=== PATIENT | male | born 1945 | race Caucasian/White ===

== ENCOUNTER → 2017-04-20 | Outpatient (CLI) | payer BC ==
[~2017-04-20] MED LIST: ACET-1256 PO; ASPI325T4 PO; CARB25TA12 PO; CLB/200 PO; CMD6 PO; ERYOPO1 TOP; LPR25 PO; MULTCHW PO; PSYL55.43 PO; RANITAB6 PO; VALA1TAB PO; WARF-246 PO; [UNRECOGNIZED DRUG - CODE] TOP
--- NOTE | 2017-04-21 05:17 | PAP/PSG TECHNICIAN REPORT ---
[facility] Carbon Lamp Cleaner Polysomnogram Report Study name: None Report date: 04/21/2017 Study date: 04/20/2017 Referring Physician: Belle Segura M.D. Name: MILIND FLORENTINO Interpreting Physician: Saurabh Quiñones D.O. Date of : 1945 Carbon Lamp Cleaner: Qian Odell [facility]. Sex: Male Age: 72 StudyType: PSG Weight: 210 lbs Height: 72 years, Height 6' 2" Neck Circum:16inches BMI: 26.96 Medications: Warfarin 5mg, Warfarin, 1 mg, Celebrex 200mg, Sinemet 25-100tab, Olux topical foam, Ergel topical gel, Ketoconazole 2% shampoo Patient History Study started on room air with no ETCO2 monitoring in room #6. 72 yr old male just recently diagnosed with Parkinson Disease. He has low back pain. He sleeps supine with his head and legs elevated. He snores. He has a history of atrial fibrillation, bleeding disorder, blood clots, cancer and osteoarthritis. His ESS=8/24. Neck circ=16 inches. Parameters Monitored NPSG: E1-M2, E2-M1, Fp1-M2, Fp2-M1, F3-M2, F4-M2, F4-M1, C3-M2, C4-M2, C4-M1, O1-M2, O2-M2, O2-M1, T3-M2, T4-M1, P3-M2, P4-M1, CHIN1, CHIN2, HR, EKG, Legs, PFLOW, SNOR, FLOW, CFLOW, Tidal Volume, THOR, ABDO, SpO2, PLTH, CPRESS, ETCO2 Wave, ETCO2, pH Sleep Architecture Sleep Stages Time at Lights Off 10:12:38 PM STAGES Time (min.) TST (%) Time at Lights On 4:58:38 AM Wake 61.0 -- Total Recording Time (TRT) 406.00 min. N1 8.0 2 Total Sleep Period (TSP) 386.0 min. N2 133.5 39 Total Sleep Time (TST) 345.0min. N3 138.5 40 Awake Time 61.0 min. REM 65.0 19 Wake after Sleep Onset 54.5 min. Sleep Efficiency (SE) 85 % Sleep Onset Latency (ROBEL) 6.5 min. Number of Stage 1 Shifts None Awakenings 10 Stage Changes 54 Number of REM periods 11 REM 65.0 19 REM Latency 66.5 min. NREM 280.0 81 Body Position Analysis Supine Right Left Side Prone Vertical Total Sleep Time (min.) 406.0 0.0 0.0 0.00 0.0 0.0 Total Sleep Time (%) 100% 0% 0% 0 0% N/A% Total Sleep Time REM (min.) 65.0 0.0 0.0 None 0.0 0.0 Total Sleep Time NREM (min.) 280.0 0.0 0.0 None 0.0 0.0 Intermittent Wake (min.) 61.0 0.0 0.0 None 0.0 0.0 Total Sleep Period (%) 100% None None None None None Arousals Myoclonus (PLM) * Events Count Index Events Count Index Spontaneous 13 2 Events Awake (PLMW) 41 40.3 Respiratory 3 0.5 Events Asleep w/ Arousal (PLMA) 3 0.5 PLM 3 1 Events Asleep w/o Arousal (PLMS) 757 131.7 Snoring 3 1 Total Asleep 760 132.2 Total 22 4 Total 801 118 Respiratory Analysis * CA OA MA CH H RERA Total Count 0 4 0 0 42 0 46 Index 0.0 0.7 0.0 0 7.3 0 8.0 Mean Duration 0.0 28.3 0.0 0.00 35.6 0.0 34.9 Longest Duration 0.0 42.2 0.0 0.00 0.0 0.0 60.7 Respiratory Event Summary Total Supine ~Supine Right Left Prone REM NREM Apneas Count 4 4 N/A N/A N/A N/A 0 4 Index 0.7 1 N/A N/A N/A N/A 0 1 Hypopneas (4% Desat) Count 42 42 N/A N/A N/A N/A 6 36 Index 7.3 7.3 N/A N/A N/A N/A 5.5 7.7 Apneas & All Hypopneas Count 46 46 N/A N/A N/A N/A 6 40 Index 8.0 8 N/A N/A N/A N/A 5.5 8.6 Respiratory Events (Electric Distribution Engineer+All Hyp+RERA) Count 46 46 N/A N/A N/A N/A 6 40 Index 8.0 8 N/A N/A N/A N/A 5.5 8.6 Respiratory Related Arousal Count 3 46 N/A N/A N/A N/A 2 1 Index 0.5 1 N/A N/A N/A N/A 2 0 Snoring Analysis Supine Right Left Prone REM NREM Total Snore duration 6.2 min Snores count 284 N/A N/A N/A 48 236 284 Snore mean duration 1.3 Sec Snores index 49 N/A N/A N/A 44.3 50.6 49.4 TST with snoring (%) 1.8% Desaturation Event Summary: Minimum %SpO2 Event Count Mean/Min/Max Duration(sec.) Desaturation Index % Time In Bed > 90 57 43.0 / 10.3 / 60.0 9.6 91.4 86 - 90 1 9.8 / 9.8 / 9.8 1.8 8.4 81 - 85 0 N/A 0.0 0.1 76 - 80 0 N/A 0.0 0.0 71 - 75 0 N/A 0.0 0.0 66 - 70 0 N/A 0.0 0.0 61 - 65 0 N/A 0.0 0.0 56 - 60 0 N/A 0.0 0.0 51 - 55 0 N/A 0.0 0.0 < 50 0 N/A 0.0 0.0 Total REM NREM Awake <50% 0.0 min. 0.0 min. 0.0 min. 0.0 min. 51 - 60% 0.0 min. 0.0 min. 0.0 min. 0.0 min. 61 - 70% 0.0 min. 0.0 min. 0.0 min. 0.0 min. 71 - 80% 0.0 min. 0.0 min. 0.0 min. 0.0 min. 81 - 90% 33.3 min. 0.8 min. 29.8 min. 2.8 min. 91 - 100% 356.1 min. 64.0 min. 250.0 min. 42.2 min. Average 93 93 93 94 Minimum SpO2 81 88 84 81 Desaturation Event Index 8.6 10.2 9.9 1.0 # Desat. Events below 89% 13 2 11 0 Time(%) with Saturation below 89% 1.4 0.0 1.3 0.1 Time(min.) with Saturation below 89% 5.6 0.0 5.1 0.5 Time (mins) REM (mins) NREM (mins) % of TST SpO2 Below 90% 32 2 N30 3.6 SpO2 Below 88% 8 0 0 0 Heart Rate Analysis Min (bpm) Max (bpm) Average (bpm) Awake 55 76 63 NREM 52 69 60 REM 52 64 57 Overall 52 69 59 Supplemental O2 Values Minimum O2 level: None Value Start Time End Time Carbon Lamp Cleaner Comments Mr. Florentino slept in the position with the head and foot of the bed slightly elevated. No cardiac arrhythmia noted. PLM's noted. No bruxism noted. Snoring was noted and scored as a 2 on a scale of 1 through 5. (0=no snoring, 5=snoring loud enough to be heard through a closed door or down the [address] way) He awoke to use the restroom 4 times during the night. He stated that he slept about the same as usual. The final report will be interpreted and signed by a sleep physician. The completed physician report will then be placed in the patient medical record. Therapy (cm H2O) 0 TIB (min.) 406.0 TST (min.) 345.0 Sleep Onset (min.) 6.5 REM Onset From Sleep (min.) 66.5 Sleep Efficiency % 85 Wakefulness (%) 15 Wakefulness (min.) 61.0 NREM 1 (%) 2 NREM 1 (min.) 8.0 NREM 2 (%) 39 NREM 2 (min.) 133.5 NREM 3 (%) 40 NREM 3 (min.) 138.5 REM (%) 19 REM (min.) 65.0 # Arousals 22 Arousal Index 4 # Snore 284 Snore Index 49.4 AHI 8.0 AHI Supine 8 AHI Non-Supine N/A NREM AHI 8.6 REM AHI 5.5 RDI 8.0 # Obstructive Apnea 4 # Central Apnea 0 # Mixed Apnea 0 # Hypopneas 42 RERAs 0 Total Respiratory Events 46 Time Below SpO2 89% (min.) 5.1 Mean NREM SpO2 (%) 93 Mean REM SpO2 (%) 93 Mean Sleep SpO2 (%) 93 Min NREM SpO2 (%) 84 Min REM SpO2 (%) 88 Position Supine (min.) 406.0 Position Non-supine (min.) 0.0 LM Index Sleep 132.2 LM Index NREM 139.9 LM Index REM 98.8 Mean Heart Rate (bpm) 59 Min Heart Rate (bpm) 52
--- NOTE | 2017-04-21 17:51 | Sleep Study ---
Sleep Study Report Date of Service: 04/20/2017 Sleep Study Report Clinical data: The patient is a 72-year-old male with a BMI of 26.96. He is referred by Dr.Justin Segura. The patient has a history of snoring, atrial fibrillation , and he completed the [place] Sleepiness Scale and had a score of 8 out of a possible 24. He has a recent diagnosis of Parkinson's disease. Sleep architecture: A total sleep. Was 386 minutes. The total sleep time was 345 minutes. The sleep efficiency was mildly reduced to 85 percent. Sleep latency was normal at 6.5 minutes. Wake after sleep onset was 54.5 minutes. REM latency was normal at 66.5 minutes. Sleep consisted of stage N1 2 percent, stage N2 39 percent, stage N3 40 percent , and stage REM 19 percent. Arousal data: The patient had a total of 22 arousals including 13 spontaneous arousals, 3 respiratory arousals, 3 PLM arousals, and 3 snoring arousals. The arousal index was 4. PLM data: Patient had a total of 760 periodically limb movements of sleep for an index of 132.2. There were 3 arousals for a PLM arousal index of 0.5. Respiratory data: Patient had a total of 46 respiratory events including 4 obstructive apneas and 42 hypopneas. Hypopneas were scored by the 4 percent desaturation rule. The longest apnea was 42.2 seconds. The mean duration of hypopneas was 35.6 seconds. The apnea-hypopnea index is mildly elevated at 8.0. This is compatible with mild obstructive sleep apnea. Oximetry data: The average saturation for the night was 93 percent. The minimum saturation was 81 percent. There was a total of 5.6 minutes with saturations less than 89 percent. EKG: The underlying rhythm was normal sinus. No atrial fibrillation was seen. The cardiac rate ranged from 52 to 69 beats per minute. The average heart rate was 59 beats per minute. Equal Opportunity Counselor comments: The patient slept with the head in foot of the bed slightly elevated. No cardiac arrhythmia noted. PLMS noted. No bruxism noted. Snoring was noted and scored as a 2 on a scale of 1 through 5. The patient awaken to use the restroom 4 times during the night. Stated that he slept about the same as usual. Impressions: 1. Obstructive sleep apnea-mild 2. Periodic limb movement disorder Comments: The patient has mild sleep apnea. His sleep efficiency was just mildly abnormal. His oxygenation had some very transient desaturations but nothing the persisted. Consideration could be given to treatment with nasal CPAP based upon his history of comorbidities including atrial fibrillation. He has very frequent periodic limb movements but with few arousals. It would seem appropriate to treat sleep apnea 1st. The leg movement abnormality could then be evaluated after he is well adapted to CPAP. Recommendations: 1. It is advised that the patient be given a trial of nasal CPAP. This could be arranged by referral for an in-lab CPAP titration study. Alternatively he could be treated with auto CPAP. A sleep medicine consultation could be considered. 2. The patient should be advised if possible to avoid sleeping in the supine position. Typically there more respiratory events when patients are supine. It is notable he did spend the entire night in the supine position during the sleep study. 3. It is suggested that the patient have a serum ferritin checked if it has not been done recently. This would be because of the association between restless legs and iron deficiency. Typically iron replacement is advised if the ferritin level is less than 50. Copies To 1: Saurabh Quiñones DO; Belle Segura M.D.
== END | disposition home or self-care (01) ==
LOC: C.NEUR 21:00
PROVIDERS: ATTEND Orthopaedic Surgery
DX: G47.30 Sleep apnea, unspecified (principal)

== ENCOUNTER → 2017-06-06 | Outpatient (CLI) | payer BC ==
[~2017-06-06] VITALS: Ht 188 cm; Wt 98.1 kg
[2017-06-06 15:43] VITALS: BP 158/76; PULSE 79; Ht 188 cm; Wt 98.1 kg
== END | disposition home or self-care (01) ==
LOC: C.NEUR 14:10
PROVIDERS: ATTEND Internal Medicine Pulmonary Disease
DX: G47.30 Sleep apnea, unspecified (principal); G20 Parkinson's disease

== ENCOUNTER → 2017-06-16 | Day surgery (SDC) | payer BC ==
[2017-06-09 08:23] VITALS: Ht 188 cm; Wt 95.5 kg
[~2017-06-16] VITALS: Ht 188 cm; Wt 95.5 kg
[~2017-06-16] MED LIST changes: -ASPI325T4 PO; +LIDOCAINE HCL 2% 2 ML VIAL (20MG/ML) ONE; -LPR25 PO; +PROPOFOL IV EMULSION 10 MG/ML 20 ML VIAL IV ONE; -PSYL55.43 PO; +SODIUM CHLORIDE 0.9% 500ML 500 ML IV ONE
--- NOTE | 2017-06-16 08:32 | Endo History and Physical ---
History & Physical Date of Service: Jun 16, 2017. Chief Complaint: history of polyps Referring Physician: Dr. Filipe Chicas History of Present Illness 72 yo CM who presents for colonoscopy secondary to history of colon polyps. Past Surgical History Hx Cardiac Surgery: Yes (CARDIOVERSION, CARDIAC ABLATION) Hx Internal Defibrillator: No Hx Pacemaker: No Hx Abdominal Surgery: No Hx of Implantable Prosthesis: No Hx Post-Op Nausea and Vomiting: No Hx Cancer Surgery: Yes (POLYPECTOMY) Hx Thoracic Surgery: No Hx Orthopedic: Yes (LT/RT KNEE SURGERY X4, LT/RT TKA, LT/RT SHOULDER, L5-4 SPINAL SURGERY X3) Hx Urinary Tract Surgery: No Family History Colon CA, Polyp, IBD Social History Smoking Status: Never Smoker Hx Substance Use: No Hx Alcohol Use: No Allergies Coded Allergies: Dronedarone (Verified Adverse Reaction, Mild, FLU LIKE SYMPTOMS, 06/09/17) Adhesives (Verified Adverse Reaction, Unknown, RASH WITH BAND-AIDS, ) Current Medications Reported Home Medications Medications Dose Route/Sig Max Daily Dose Days Date Category Dose Instructions Erythromycin 1 Appln/1 Gm Oint 1 Dose TOP DAILY 06/09/17 Reported Olux-E (Clobetasol Propionate Emulsion) 0.05 % Aer 1 Dose TOP DAILY 06/09/17 Reported Sinemet 25MG/100MG (Carbidopa/Levodopa) Tab 1 Tab PO TID 06/09/17 Reported CeleBREX (Celecoxib) 200 Mg Cap 200 Mg PO QAM 06/09/17 Reported Coumadin (Warfarin Sod) 6 Mg Tab 1 Tab PO 4XWK 06/09/17 Reported SUN,TUES,THURS,SAT Zantac 150 Maximum Streng (Ranitidine Hcl) 150 Mg Tab 150 Mg PO DAILY PRN 10/07/13 Reported Warfarin Sodium 5 Mg Tab 5 Mg PO 3XWK 10/07/13 Reported MON, WED, FRI Tylenol (Acetaminophen) 500 Mg Tab 1,000 Mg PO UD PRN 10/07/13 Reported Centrum Silver (Multiple Vitamins W/ Minerals) 1 Chw Chw 1 Tab PO DAILY 10/07/13 Reported Valtrex (Valacyclovir HCl) 1,000 Mg Tab 1,000 Mg PO UD PRN 07/17/09 Reported Vital Signs Weight (Kilograms): 95.45 Height (Feet): 6 Height (Inches): 2 Date Time Temp Pulse Resp B/P (MAP) Pulse Ox O2 Delivery O2 Flow Rate FiO2 06/16/17 08:29 36.7 69 20 179/98 (125) 97 Room Air Physical Exam General Appearance: WD/WN, no apparent distress Respiratory/Chest: Auscultation: breath sounds normal Cardiovascular: Heart Auscultation: RRR Abdomen: Bowel Sounds: normal Inspection & Palpation: soft, non-distended, no tenderness, guarding & rebound Assessment and Plan Assessment: 72 yo CM who presents for colonoscopy secondary to history of colon polyps. Plan: Proceed with colonoscopy.
--- NOTE | 2017-06-16 09:33 | Anesthesiology Progress Note ---
Anesthesia Post Op Note Date & Time Jun 16, 2017 at 09:33 Vital Signs Pain Intensity: 0 Vital Signs Past 12 Hours Date Time Temp Pulse Resp B/P (MAP) Pulse Ox O2 Delivery O2 Flow Rate FiO2 06/16/17 09:23 58 18 128/74 (92) 97 Room Air 06/16/17 09:08 67 18 124/67 (86) 97 Room Air 06/16/17 08:29 36.7 69 20 179/98 (125) 97 Room Air Notes Mental Status: alert / awake / arousable, participated in evaluation Pt Amnestic to Procedure: Yes Nausea / Vomiting: adequately controlled Pain: adequately controlled Airway Patency, RR, SpO2: stable & adequate BP & HR: stable & adequate Hydration State: stable & adequate Anesthetic Complications: no major complications apparent
--- NOTE | 2017-06-16 09:33 | Discharge Instructions ---
Endoscopy Patient Instructions Date / Procedure(s) Performed Jun 16, 2017. Colonoscopy Allergy Information Coded Allergies: Dronedarone (Verified Adverse Reaction, Mild, FLU LIKE SYMPTOMS, 06/09/17) Adhesives (Verified Adverse Reaction, Unknown, RASH WITH BAND-AIDS, ) Discharge Date / Findings Jun 16, 2017. Colon polyps Diverticulosis Internal hemorrhoids Medication Instructions Stopped Medication(s): stopped MVI week ago,took Warfarin yesterday OK to resume all medications today as prescribed Reported Home Medications Medications Dose Route/Sig Max Daily Dose Days Date Category Dose Instructions Erythromycin 1 Appln/1 Gm Oint 1 Dose TOP DAILY 06/09/17 Reported Olux-E (Clobetasol Propionate Emulsion) 0.05 % Aer 1 Dose TOP DAILY 06/09/17 Reported Sinemet 25MG/100MG (Carbidopa/Levodopa) Tab 1 Tab PO TID 06/09/17 Reported CeleBREX (Celecoxib) 200 Mg Cap 200 Mg PO QAM 06/09/17 Reported Coumadin (Warfarin Sod) 6 Mg Tab 1 Tab PO 4XWK 06/09/17 Reported SUN,TUES,THURS,SAT Zantac 150 Maximum Streng (Ranitidine Hcl) 150 Mg Tab 150 Mg PO DAILY PRN 10/07/13 Reported Warfarin Sodium 5 Mg Tab 5 Mg PO 3XWK 10/07/13 Reported MON, WED, FRI Tylenol (Acetaminophen) 500 Mg Tab 1,000 Mg PO UD PRN 10/07/13 Reported Centrum Silver (Multiple Vitamins W/ Minerals) 1 Chw Chw 1 Tab PO DAILY 10/07/13 Reported Valtrex (Valacyclovir HCl) 1,000 Mg Tab 1,000 Mg PO UD PRN 07/17/09 Reported Provider Instructions Activity Restrictions - No exercising or heavy lifting for 24 hours. - Do not drink alcohol the day of the procedure. - Do not drive a car or operate machinery until the day after the procedure. - Do not make any important decisions or sign important papers in 24 hours after the procedure. Following Day: - Return to full activity which may include returning to work/school. Diet Start your diet with liquids and light foods (jello, soup, juice, toast). Then eat your usual diet if not nauseated. Treatment For Common After Affects For mild abdominal pain, bloating, or excessive gas: - Rest - Eat lightly - Lie on right side Follow-Up Information Follow-up with Dr. Filipe Chicas as scheduled Anesthesia Information What You Should Know You have had a procedure that required some medicine to reduce anxiety and discomfort. This treatment is called moderate sedation. After receiving the treatment, you may be sleepy, but you will be able to breathe on your own. The effects of the treatment may last for several hours. Follow these instructions along with Activity/Diet recommendations noted above: * Do NOT do anything where dizziness or clumsiness would be dangerous. * Rest quietly at home today, then you can be up and about tomorrow. * Have a responsible person stay with you the rest of today. * You may have had an I.V. today. If so, you may take the dressing off later today. Recommendations Call your doctor if: * Trouble breathing * Continuous vomiting for more than 24 hours * Temperature above 101 degrees * Severe abdominal pain or bloating * Pain not relieved by pain medicine ordered * There is increased drainage or redness from any incision * A large amount of rectal bleeding greater than 2-3 tablespoons. (If you had a polyp/s removed or have hemorrhoids, a small amount of blood - from the rectum is to be expected.) * You have any unanswered questions or concerns. IN THE EVENT OF A SERIOUS EMERGENCY, GO TO THE NEAREST EMERGENCY ROOM Your discharge instructions were prepared by provider Farhat Diop. Patient Instructions Signature Page Kimo Florentino Patient (or Guardian) Signature/Date: I have read and understand the instructions given to me by my caregivers. Caregiver/RN/Doctor Signature/Date: The above-named patient and/or guardian has received patient instructions on this date. + Original Patient Signature Page (only) stays with chart. Please make copy for patient.
[2017-06-16 09:38] VITALS: BP 161/91; PULSE 62; O2SAT 97
--- NOTE | 2017-06-16 09:43 | GI REPORT ---
Procedure Date: 06/16/2017 8:43 AM Procedure: Colonoscopy Indications: High risk colon cancer surveillance: Personal history of colonic polyps Medicines: Monitored Anesthesia Care Complications: No immediate complications. Estimated Blood Loss: Estimated blood loss: none. Procedure: Pre-Anesthesia Assessment: - Prior to the procedure, a History and Physical was performed, and patient medications and allergies were reviewed. The patient's tolerance of previous anesthesia was also reviewed. The risks and benefits of the procedure and the sedation options and risks were discussed with the patient. All questions were answered, and informed consent was obtained. Prior Anticoagulants: The patient has taken Coumadin (warfarin), last dose was 1 day prior to procedure. ASA Grade Assessment: III - A patient with severe systemic disease. After reviewing the risks and benefits, the patient was deemed in satisfactory condition to undergo the procedure. After I obtained informed consent, the scope was passed under direct vision. Throughout the procedure, the patient's blood pressure, pulse, and oxygen saturations were monitored continuously. The scope was introduced through the anus and advanced to the terminal ileum. The colonoscopy was performed without difficulty. The patient tolerated the procedure well. The quality of the bowel preparation was fair. The terminal ileum, ileocecal valve, appendiceal orifice, and rectum were photographed. Findings: Two sessile polyps were found in the cecum. The polyps were 3 to 5 mm in size. These polyps were removed with a hot snare. Resection and retrieval were complete. Multiple small-mouthed diverticula were found in the sigmoid colon. Non-bleeding internal hemorrhoids were found during retroflexion. The hemorrhoids were small. Impression: - Two 3 to 5 mm polyps in the cecum, removed with a hot snare. Resected and retrieved. - Diverticulosis in the sigmoid colon. - Non-bleeding internal hemorrhoids. Recommendation: - Resume previous diet. - Continue present medications. - Repeat colonoscopy for surveillance based on pathology results. - Return to primary care physician as previously scheduled. Farhat Diop, DO 06/16/2017 9:42:21 AM This report has been signed electronically. Note Initiated On: 06/16/2017 8:43 AM I attest to the content of the Intraoperative Record and orders documented therein, exceptions below
== END | disposition home or self-care (01) ==
LOC: C.GI 08:10
PROVIDERS: ATTEND Internal Medicine
DX: Z12.11 Encounter for screening for malignant neoplasm of colon (principal); D12.0 Benign neoplasm of cecum; K57.30 Diverticulosis of large intestine without perforation or abscess without bleeding; K64.8 Other hemorrhoids; Z86.010 Personal history of colon polyps; Z80.0 Family history of malignant neoplasm of digestive organs; Z83.71 Family history of colonic polyps; Z83.79 Family history of other diseases of the digestive system; Z79.01 Long term (current) use of anticoagulants; Z79.899 Other long term (current) drug therapy

== ENCOUNTER 2017-06-26 15:02 | Inpatient (IN) | payer BC, OTHER ==
[~2017-06-26] VITALS: Ht 188 cm; Wt 93.8 kg
[~2017-06-26 15:02] MED LIST changes: -LIDOCAINE HCL 2% 2 ML VIAL (20MG/ML) ONE; -PROPOFOL IV EMULSION 10 MG/ML 20 ML VIAL IV ONE; -SODIUM CHLORIDE 0.9% 500ML 500 ML IV ONE
--- NOTE | 2017-06-26 16:17 | EMERGENCY ROOM VISIT NOTE ---
ED Visit Note First contact with patient: 15:17 HPI: c/o GIB. On coumadin for dVT. Recent colonscopy s/p polypectomy. Dark stool x 1 yesterday and red blood per rectum x 1 today. PE: AFVSS, NAD NC/AT, dry MM RRR, no murmurs CTAB Abd soft, mild lower abd ttp. Ext: no edema, erythema Neuro: grossly intact Plan: +Melena per residen's rectal exam. HCT 38, BUN 24, INR 2.2. CXR negative for free air. Protonix. Admit. I reviewed the patient's past medical history, medications, and visit nursing notes. I discussed the case with the resident, examined the patient, and agree with the findings and plan as documented in the residents note.
--- NOTE | 2017-06-26 16:21 | EMERGENCY ROOM VISIT NOTE ---
History First contact with patient: 15:18 Chief Complaint: GI ASSESSMENT Stated Complaint: BLOOD IN STOOL, GAS PAINS Nursing Triage Summary: Patient presents with c/o blood in stool He is on coumadin He had a colonoscopy on 06/16/2017, reports difficulty with bowel movements and constipation for several days. He has been using miralax. He noted black stool and some red blood in the toilet today He also reports a hemorrhoid History of Present Illness The patient is a 72 year old male who presents to the Emergency Room with complaints of dark stool which started yesterday. The patient had noticed dark stool with blood in the toilet bowl today. It is associated with abdominal pain. The patient had a colonoscopy performed on 06/16 and had a resection of 2 polyps in the cecum. He was also noted to have diverticulosis and internal hemorrhoids. After the colonoscopy he stated that he did not have a bowel movement for 3 to 4 days and he took MiraLAX and Metamucil. The patient has a family history of colon cancer and had been getting colonoscopies , his last colonoscopy was 06/16. He also complains of lower abdominal pain that started about 3 days ago, 2-3/10 in severity with no radiation. Denies any nausea or vomiting, fevers or chills. Patient takes Coumadin for DVT and Celebrex for knee pain. Denies any chest pain, shortness of breath, palpitations or dizziness. Review of Systems See HPI for pertinent positives & negatives. A total of 10 systems reviewed and were otherwise negative. Past Medical/Surgical History DVT. Parkinson's disease. TKA. Shoulder surgery. Social History Smoking Status: Never Smoker Marital Status: Occupation Status: retired Current/Historical Medications Scheduled Carbidopa/Levodopa (Sinemet 25MG/100MG), 1 TAB PO TID Celecoxib (CeleBREX), 200 MG PO QAM Clobetasol Propionate Emulsion (Olux-E), 1 DOSE TOP DAILY Erythromycin (Erythromycin), 1 DOSE TOP BID Multiple Vitamins W/ Minerals (Centrum Silver), 1 TAB PO DAILY Warfarin Sod (Coumadin), 1 TAB PO 4XWK Warfarin Sodium (Warfarin Sodium), 5 MG PO 3XWK Scheduled PRN Ranitidine Hcl (Zantac 150 Maximum Streng), 150 MG PO DAILY PRN for Indigestion Valacyclovir (Valtrex), 1,000 MG PO UD PRN for BREAKOUT Physical Exam Vital Signs Date Time Temp Pulse Resp B/P (MAP) Pulse Ox O2 Delivery O2 Flow Rate FiO2 06/26/17 19:37 69 15 97 06/26/17 19:30 145/82 06/26/17 19:22 69 18 97 06/26/17 19:21 158/94 06/26/17 19:07 72 12 06/26/17 19:01 164/94 06/26/17 19:00 67 06/26/17 18:52 69 25 06/26/17 18:37 64 17 100 06/26/17 18:32 66 15 100 06/26/17 18:02 65 20 99 06/26/17 18:00 142/80 06/26/17 17:32 66 97 06/26/17 17:02 65 17 140/76 97 06/26/17 17:02 71 16 140/76 97 Room Air 06/26/17 16:32 68 19 99 06/26/17 16:07 68 06/26/17 16:02 69 22 06/26/17 16:00 150/85 06/26/17 15:31 181/106 06/26/17 15:30 98 Room Air 06/26/17 15:10 36.4 76 20 153/88 98 Room Air Physical Exam GENERAL: Patient is in no acute distress. HEENT: normocephalic atraumatic, mucous membranes moist, no nasal congestion, no scleral icterus. NECK: No stridor, no adenopathy, no meningismus, trachea is midline. LUNGS: Clear to auscultation bilaterally, no wheeze, no rhonchi, breath sounds equal. HEART: Without murmurs gallops or rubs, regular rate and rhythm. ABDOMEN: Soft, mild left lower quadrant tenderness , bowel sounds positive, no hernias, no peritonitis. EXTREMITIES: No cyanosis or edema, no signs for acute trauma. NEUROLOGIC: Oriented x 3, left sided paralysis SKIN: No rash, no jaundice, no diaphoresis. Medical Decision & Procedures Laboratory Results 06/26/17 15:25 Red Blood Count 4.38, Mean Corpuscular Volume 86.5, Mean Corpuscular Hemoglobin 28.8, Mean Corpuscular Hemoglobin Concent 33.2, Mean Platelet Volume 9.6, Neutrophils (%) (Auto) 72.1, Lymphocytes (%) (Auto) 18.4, Monocytes (%) (Auto) 6.9, Eosinophils (%) (Auto) 2.0, Basophils (%) (Auto) 0.3, Neutrophils # (Auto) 5.30, Lymphocytes # (Auto) 1.35, Monocytes # (Auto) 0.51, Eosinophils # (Auto) 0.15, Basophils # (Auto) 0.02 06/26/17 15:25 Test 06/26/17 15:25 White Blood Count 7.35 K/uL (4.8-10.8) Red Blood Count 4.38 M/uL (4.7-6.1) Hemoglobin 12.6 g/dL (14.0-18.0) Hematocrit 37.9 % (42-52) Mean Corpuscular Volume 86.5 fL (80-100) Mean Corpuscular Hemoglobin 28.8 pg (25-34) Mean Corpuscular Hemoglobin Concent 33.2 g/dl (32-36) Platelet Count 203 K/uL (130-400) Mean Platelet Volume 9.6 fL (7.4-10.4) Neutrophils (%) (Auto) 72.1 % Lymphocytes (%) (Auto) 18.4 % Monocytes (%) (Auto) 6.9 % Eosinophils (%) (Auto) 2.0 % Basophils (%) (Auto) 0.3 % Neutrophils # (Auto) 5.30 K/uL (1.4-6.5) Lymphocytes # (Auto) 1.35 K/uL (1.2-3.4) Monocytes # (Auto) 0.51 K/uL (0.11-0.59) Eosinophils # (Auto) 0.15 K/uL (0-0.5) Basophils # (Auto) 0.02 K/uL (0-0.2) RDW Standard Deviation 45.2 fL (36.4-46.3) RDW Coefficient of Variation 14.3 % (11.5-14.5) Immature Granulocyte % (Auto) 0.3 % Immature Granulocyte # (Auto) 0.02 K/uL (0.00-0.02) Prothrombin Time 25.7 SECONDS (9.0-12.0) Prothromb Time International Ratio 2.3 (0.9-1.1) Activated Partial Thromboplast Time 38.1 SECONDS (21.0-31.0) Partial Thromboplastin Ratio 1.5 Anion Gap 5.0 mmol/L (3-11) Est Creatinine Clear Calc Drug Dose 91.6 ml/min Estimated GFR () 101.1 Estimated GFR (Non- 87.2 BUN/Creatinine Ratio 27.4 (10-20) Calcium Level 10.0 mg/dl (8.5-10.1) Total Bilirubin 0.4 mg/dl (0.2-1) Aspartate Amino Transf (AST/SGOT) 19 U/L (15-37) Alanine Aminotransferase (ALT/SGPT) 10 U/L (12-78) Alkaline Phosphatase 71 U/L (45-117) Total Protein 7.1 gm/dl (6.4-8.2) Albumin 3.8 gm/dl (3.4-5.0) Globulin 3.3 gm/dl (2.5-4.0) Albumin/Globulin Ratio 1.2 (0.9-2) Medications Administered Medications (Trade) Dose Ordered Sig/Maia Route Start Time Stop Time Status Last Admin Dose Admin Sodium Chloride 1,000 ml @ 100 mls/hr Q10H IV 06/26/17 16:30 07/26/17 16:29 06/26/17 16:27 100 MLS/HR Pantoprazole Sodium 40 mg/ Syringe 10 ml @ 5 mls/min NOW ONCE IV 06/26/17 16:30 06/26/17 16:31 DC 06/26/17 16:58 5 MLS/MIN ECG Rhythm: normal sinus Medical Decision Prior records/ancillary studies reviewed. Triage Nursing notes reviewed. Additional history obtained from his . The patient's history was concerning for possible gastrointestinal bleeding. Differential diagnosis: Etiologies such as diverticulosis, AVM, coagulopathy, colitis, inflammatory bowel disease, malignancy, Stephanie-Lau tear, esophagitis, peptic ulcer disease , variceal bleed, gastritis, epistaxis, fissure, hemorrhoids, as well as others were entertained. Physical exam: As above. The patients vital signs were stable. ER treatment provided: CBC, CMP, PT/PTT, type/cross, CXR and EKG were ordered. Hemoccult in ER was positive . IV fluids and 40 mg IV Protonix were ordered On reassessment the patient felt better. Diagnostics interpreted by me: ECG: Normal sinus rhythm, Normal ECG When compared with ECG of 15-SEP-2014 11:31 The labs revealed a hgb at 12.6, INR at 2.3 Imaging studies: CXR: No acute changes Consultation: A consultation was placed with the [facility] hospitalist. The case was discussed and diagnostics were reviewed. The patient was evaluated in the ER for further treatment. This appears to be consistent with GI bleed. By the evaluation outlined above emergent etiologies such as esophageal perforation, peptic ulcer disease, variceal bleed, coagulopathy, gastritis, epistaxis, malignancy, inflammatory bowel disease, as well as others were deemed relatively unlikely. 72-year-old male with a recent colonoscopy performed on 06/16 with resection of 2 polyps presented with dark stool and blood in the toilet bowl. He is currently on Coumadin for DVT. He also complains of lower abdominal pain especially in the left lower quadrant but denies any nausea, vomiting. History and colonoscopy also revealed diverticulosis and internal hemorrhoids. Lab work revealed a hemoglobin of 12.6 and INR of 2.3. Hemoccult was performed in the ER and was positive for melanotic stool. Per the [place] bleeding score was 5, suggestive of high risk GI bleed likely requiring medical intervention. Considering Coumadin and Celebrex use, he is slightly high risk for GI bleed . Case was discussed with the hospitalist and he will be admitted for further evaluation and treatment. Impression Primary Impression: GI bleed Departure Information Referrals Filipe Chicas M.D. (PCP) Patient Instructions My [facility] Resident Tracking Resident Involvement: Resident Care Provided Care Provided: Adult ED
[2017-06-26 16:24] LABS: BASO % 0.3 %; BASO ABS # 0.02 K/uL (0-0.2); COMPLETE YES; HEMATOCRIT 37.9 % (42-52); IG% 0.3 %; LYMPH % 18.4 %; LYMPH ABS # 1.35 K/uL (1.2-3.4); MEAN CELL VOLUME 86.5 fL (80-100); MEAN CORPUSCULAR HEMOGLOBIN 28.8 pg (25-34); MEAN CORPUSCULAR HGB CONC 33.2 g/dl (32-36); MEAN PLATELET VOLUME 9.6 fL (7.4-10.4); MONO % 6.9 %; NEUT % 72.1 %; PLATELET COUNT 203 K/uL (130-400); RED BLOOD COUNT 4.38 M/uL (4.7-6.1); WHITE BLOOD COUNT 7.35 K/uL (4.8-10.8)
[2017-06-26 16:30] LABS: INR 2.3 (0.9-1.1); PARTIAL THROMBOPLASTIN RATIO 1.5; PROTHROMBIN TIME (PATIENT) 25.7 SECONDS (9.0-12.0)
[2017-06-26] MEDS ORDERED: SODIUM CHLORIDE 0.9% 1000ML 1,000 ML IV SCH (16:30)
[2017-06-26] MEDS ORDERED: PANTOprazole INJ 40 MG in SYRINGE 0 ML IV ONE (16:30)
[2017-06-26 16:44] LABS: BUN/CREATININE RATIO 27.4 (10-20); CREATININE 0.86 mg/dl (0.60-1.40)
[2017-06-26 16:47] LABS: ALB/GLOB RATIO 1.2 (0.9-2)
--- NOTE | 2017-06-26 16:56 | DIAGNOSTIC IMAGING REPORT ---
CHEST ONE VIEW PORTABLE CLINICAL HISTORY: abd pain. Rule out perf pain COMPARISON STUDY: 09/15/2014 FINDINGS: Chronic pleural reactive change left base laterally. Slight shows a prominent also considered chronic. No focal infiltrate. Heart top limits normal in terms of size. IMPRESSION: Chronic change. No acute process. The above report was generated using voice recognition software. It may contain grammatical, syntax or spelling errors. Electronically signed by: Mansoor Miller M.D. 06/26/2017 4:55 PM Dictated Date/Time: 06/26/2017 4:54 PM
--- NOTE | 2017-06-26 18:55 | History and Physical ---
History & Physical Date & Time of Service: Jun 26, 2017 at 18:40 Chief Complaint: Blood In Stool, Gas Pains Primary Care Physician: Filipe Chicas M.D. History of Present Illness This is a 72-year-old male with past medical history of hypertension, atrial fibrillation, history of DVT, deficiency of clotting factor, Parkinsons disease , Jewett palsy, hx of acoustic neuroma s/p removal, diverticulosis, hx of tubular adenoma 3 years ago,GERD, mild sleep apnea, osteoarthritis, genital herpes simplex, and spinal stenosis who presents to the ER with dark stools and episode of bright red blood per rectum 2 days. He noticed dark tarry stools yesterday, and then noticed one episode of bright red blood per rectum today with bowel movement. The patient recently had a colonoscopy by Dr. britton on for routine surveillance due to high risk for colon cancer. The patient had 2 sessile cecal polyps removed, multiple small mouth diverticula in the sigmoid colon, and small nonbleeding internal hemorrhoids seen on retroflexion. He notes that after his colonoscopy he had been constipated for 4-5 days and therefore took MiraLAX and Metamucil which relieved his constipation at that point. He denies any abdominal discomfort, bloating, tenderness, nausea, vomiting, diarrhea. He notes he was slightly tender when palpated by ER physician in the left lower quadrant, but prior to this had not felt pain there. Last time the patient ate was at 7 AM this morning. Here in the ER patient's hemoglobin is stable at 12.6, baseline appears to be around 13. There is no white blood count elevation, he is afebrile, vital signs are stable with a blood pressure which is elevated in the 160s during my exam. Past Medical/Surgical History Medical history Hypertension Atrial fibrillation status post ablation History of DVT History of PE Deficiency of clotting factor Diverticulosis GERD Genital herpes simplex Neoplasm of acoustic nerve Parkinson's disease Peripheral neuropathy History of tubular adenoma Surgical history Back surgery Craniotomy excision of acoustic neuroma Knee replacement bilaterally Shoulder surgery Social History Smoking Status: Never Smoker Smokeless Tobacco Use: No Alcohol Use: none Drug Use: none Marital Status: Housing status: lives with family Occupational Status: retired Immunizations History of Influenza Vaccine: Yes History of Tetanus Vaccine?: Unknown History of Pneumococcal: No History of Hepatitis B Vaccine: Unknown Multi-Drug Resistant Organisms History of MDRO: No Allergies Coded Allergies: Dronedarone (Verified Adverse Reaction, Mild, FLU LIKE SYMPTOMS, 06/26/17) Adhesives (Verified Adverse Reaction, Unknown, RASH WITH BAND-AIDS, ) Home Medications Scheduled Carbidopa/Levodopa (Sinemet 25MG/100MG), 1 TAB PO TID Celecoxib (CeleBREX), 200 MG PO QAM Clobetasol Propionate Emulsion (Olux-E), 1 DOSE TOP DAILY Erythromycin (Erythromycin), 1 DOSE TOP BID Multiple Vitamins W/ Minerals (Centrum Silver), 1 TAB PO DAILY Warfarin Sod (Coumadin), 1 TAB PO 4XWK Warfarin Sodium (Warfarin Sodium), 5 MG PO 3XWK Scheduled PRN Ranitidine Hcl (Zantac 150 Maximum Streng), 150 MG PO DAILY PRN for Indigestion Valacyclovir (Valtrex), 1,000 MG PO UD PRN for BREAKOUT Review of Systems Constitutional: No fever, No chills, No sweats, No fatigue Eyes: No redness, No diplopia ENT: + hearing loss (right ear deafness) Respiratory: No cough, No sputum, No wheezing, No shortness of breath Cardiovascular: No chest pain, No edema, No palpitations Abdomen: No pain, No nausea, No vomiting, No diarrhea, No constipation Musculoskeletal: + swelling, No joint pain, No muscle pain, No calf pain Genitourinary - Male: No hematuria Neurologic: + numbness/tingling (peripheral neuropathy worse in the right foot compared to last), + problem reported (recently diagnosed with Parkinson's disease) Endocrine: No fatigue Hematologic / Lymphatic: + clotting problems Integumentary: No rash, No itch Physical Exam Vital Signs Date Time Temp Pulse Resp B/P (MAP) Pulse Ox O2 Delivery O2 Flow Rate FiO2 06/26/17 17:02 71 16 140/76 97 Room Air 06/26/17 16:07 68 06/26/17 15:30 98 Room Air 06/26/17 15:10 36.4 76 20 153/88 98 Room Air General Appearance: WD/WN, no apparent distress, + pertinent finding (right sided facial droop) Head: normocephalic, atraumatic Eyes: PERRL, EOMI ENT: hearing grossly normal, pharynx normal Neck: supple, no JVD Respiratory/Chest: lungs clear, normal breath sounds, no respiratory distress, no accessory muscle use Cardiovascular: regular rate, rhythm, no murmur, normal peripheral pulses Abdomen/GI: normal bowel sounds, non tender, soft Back: normal inspection, no muscle spasm Extremities/Musculoskelatal: normal inspection, no calf tenderness, + pedal edema (minimal bilateral nonpitting edema) Neurologic/Psych: alert, normal reflexes, oriented x 3, + pertinent finding (+ fine tremor in BLE, no tremor in upper ext, + R sided facial droop) Skin: normal color, warm/dry Diagnostics Laboratory Results Results Past 24 Hours Test 06/26/17 15:25 Range/Units White Blood Count 7.35 4.8-10.8 K/uL Red Blood Count 4.38 4.7-6.1 M/uL Hemoglobin 12.6 14.0-18.0 g/dL Hematocrit 37.9 42-52 % Mean Corpuscular Volume 86.5 80-100 fL Mean Corpuscular Hemoglobin 28.8 25-34 pg Mean Corpuscular Hemoglobin Concent 33.2 32-36 g/dl Platelet Count 203 130-400 K/uL Mean Platelet Volume 9.6 7.4-10.4 fL Neutrophils (%) (Auto) 72.1 % Lymphocytes (%) (Auto) 18.4 % Monocytes (%) (Auto) 6.9 % Eosinophils (%) (Auto) 2.0 % Basophils (%) (Auto) 0.3 % Neutrophils # (Auto) 5.30 1.4-6.5 K/uL Lymphocytes # (Auto) 1.35 1.2-3.4 K/uL Monocytes # (Auto) 0.51 0.11-0.59 K/uL Eosinophils # (Auto) 0.15 0-0.5 K/uL Basophils # (Auto) 0.02 0-0.2 K/uL RDW Standard Deviation 45.2 36.4-46.3 fL RDW Coefficient of Variation 14.3 11.5-14.5 % Immature Granulocyte % (Auto) 0.3 % Immature Granulocyte # (Auto) 0.02 0.00-0.02 K/uL Prothrombin Time 25.7 9.0-12.0 SECONDS Prothromb Time International Ratio 2.3 0.9-1.1 Activated Partial Thromboplast Time 38.1 21.0-31.0 SECONDS Partial Thromboplastin Ratio 1.5 Sodium Level 135 136-145 mmol/L Potassium Level 4.0 3.5-5.1 mmol/L Chloride Level 104 98-107 mmol/L Carbon Dioxide Level 26 21-32 mmol/L Anion Gap 5.0 3-11 mmol/L Blood Urea Nitrogen 24 7-18 mg/dl Creatinine 0.86 0.60-1.40 mg/dl Est Creatinine Clear Calc Drug Dose 91.6 ml/min Estimated GFR () 101.1 Estimated GFR (Non- 87.2 BUN/Creatinine Ratio 27.4 10-20 Random Glucose 81 70-99 mg/dl Calcium Level 10.0 8.5-10.1 mg/dl Total Bilirubin 0.4 0.2-1 mg/dl Aspartate Amino Transf (AST/SGOT) 19 15-37 U/L Alanine Aminotransferase (ALT/SGPT) 10 12-78 U/L Alkaline Phosphatase 71 45-117 U/L Total Protein 7.1 6.4-8.2 gm/dl Albumin 3.8 3.4-5.0 gm/dl Globulin 3.3 2.5-4.0 gm/dl Albumin/Globulin Ratio 1.2 0.9-2 Diagnostic Radiology CHEST ONE VIEW PORTABLE CLINICAL HISTORY: abd pain. Rule out perf pain COMPARISON STUDY: 09/15/2014 FINDINGS: Chronic pleural reactive change left base laterally. Slight shows a prominent also considered chronic. No focal infiltrate. Heart top limits normal in terms of size. IMPRESSION: Chronic change. No acute process. The above report was generated using voice recognition software. It may contain grammatical, syntax or spelling errors. Electronically signed by: Mansoor Miller M.D. 06/26/2017 4:55 PM Dictated Date/Time: 06/26/2017 4:54 PM The status of this report is Signed. EKG Vent. rate 68 BPM NM interval 200 ms QRS duration 94 ms QT/QTc 400/425 ms P-R-T axes 57 36 45 Normal sinus rhythm Normal ECG When compared with ECG of 15-SEP-2014 11:31, No significant change was found Confirmed by Hipolito Wilkes ([id number]) on 06/26/2017 5:01:29 PM Impression Assessment and Plan This is a 72-year-old male with past medical history of hypertension, atrial fibrillation, history of DVT, hx of PEs, deficiency of clotting factor, Parkinsons disease, Jewett palsy, hx of acoustic neuroma s/p removal, diverticulosis, hx of tubular adenoma 3 years ago,GERD, mild sleep apnea, osteoarthritis, genital herpes simplex, and spinal stenosis who presents to the ER with dark stools and episode of bright red blood per rectum 2 days. GI Bleed Dark Tarry stools and BRBPR x 2 days - Admit to tele - Hgb stable at 12.6, appears baseline is around 13, trend with a.m. 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 The report also showed internal hemorrhoids and small mouth diverticulosis in the sigmoid colon. - Allow clear diet if evening, and make him NPO after midnight if needs for upper or lower endoscopy per GI - Guaiac all stools - Pantoprazole 40 mg twice a day ordered - HOLD coumadin GERD - We'll place the patient on pantoprazole 40 mg BID - Patient takes ranitidine 2-3 times per month on an as-needed basis, but no PPI regularly Diverticulosis - As seen on colonoscopy - Patient is tender in the left lower quadrant on exam Atrial fibrillation s/p ablation therapy in 2013 IVC filter placement History of DVT in 2009 History of two PEs 1979, 1986 - Patient is on chronic anticoagulation with Coumadin: Alternates dosing of 5 mg on MWF and 6 mg on TThSS. At this time we will hold the patient's anticoagulation. The risks and benefits of holding medication was discussed with the patient, he is in agreement with currently holding for GI bleed. - INR currently 2.3, follow am INR HTN - Patient's blood pressure is running in the upper 150s to 160s at this time, will order IV Lopressor when necessary - Patient has been trialed on antihypertensives by PCP as an outpatient however he has failed due to hypotensive episodes - he reports white coat syndrome. Parkinson's disease Jewett palsy Peripheral Neuropathy Fine tremor - Patient follows with Dr. Macdonald as an outpatient - Continue Sinemet 25-100 mg TID, give dose tonight Hx of acoustic neuroma - Stable Mild sleep apnea - Patient does not require supplemental O2 DVT prophylaxis: Teds, SCDs, hold Coumadin for now with GI bleed CODE STATUS: Full code Disposition: Admit to telemetry, patient from home Level of Care Telemetry Advanced Directives Existing Advance Directive: No Existing Living Will: No Existing Power of Electronics System Mechanic: No Existing Health Care Proxy: No Resuscitation Status FULL RESUSCITATION VTE Prophylaxis VTE Risk Assessment Done? Y/N: Yes Risk Level: Moderate Given or contraindicated: T.E.D. Stockings, SCD's
[2017-06-26] MEDS ORDERED: METOPROLOL TARTRATE 1 MG/ML VIAL IV PRN (19:30)
[2017-06-26] MEDS ORDERED: ACETAMINOPHEN 325 MG TAB PO PRN (19:30)
[2017-06-26] MEDS ORDERED: ONDANSETRON INJ 2 MG/ML 2 ML VIAL IV PRN (19:30)
[2017-06-26 22:28] VITALS: BP 177/90; PULSE 78; TEMP 36.8; Ht 188 cm; Wt 93.8 kg
[2017-06-26] MEDS: CARBIDOPA/LEVODOPA 25/100MG TAB PO SCH (23:03)
[2017-06-26] MEDS: PANTOprazole SOD 40 MG TAB PO SCH (23:03)
[2017-06-26] MEDS ORDERED: PNEUMOCOCCAL ADMINISTRATION CHARGE ONE (23:30)
[2017-06-26] MEDS ORDERED: PNEUMOCOCCAL POLYSACCHARIDES 25 MCG/0.5 ML VIAL/SYR IM. ONE (23:30)
[2017-06-27] VITALS (10 sets, daily range): BP systolic 117–183; BP diastolic 66–93; PULSE 61–79; TEMP 36.5–37; O2SAT 96–99
[2017-06-27] MEDS ORDERED: SODIUM CHLORIDE 0.9% 1000ML 1,000 ML IV SCH
[2017-06-27 07:18] LABS: BASO % 0.4 %; BASO ABS # 0.02 K/uL (0-0.2); COMPLETE YES; EOS % 2.7 %; HEMATOCRIT 34.2 % (42-52); LYMPH % 23.3 %; MEAN CELL VOLUME 86.6 fL (80-100); MEAN CORPUSCULAR HEMOGLOBIN 29.6 pg (25-34); MEAN CORPUSCULAR HGB CONC 34.2 g/dl (32-36); MEAN PLATELET VOLUME 9.6 fL (7.4-10.4); MONO % 8.2 %; NEUT % 65.4 %; PLATELET COUNT 170 K/uL (130-400); RED BLOOD COUNT 3.95 M/uL (4.7-6.1); WHITE BLOOD COUNT 5.15 K/uL (4.8-10.8)
[2017-06-27 07:27] LABS: INR 2.3 (0.9-1.1); PROTHROMBIN TIME (PATIENT) 25.8 SECONDS (9.0-12.0)
[2017-06-27 07:52] LABS: BUN/CREATININE RATIO 20.5 (10-20); CALCIUM 9.9 mg/dl (8.5-10.1); CREATININE 0.83 mg/dl (0.60-1.40); MAGNESIUM 2.2 mg/dl (1.8-2.4); POTASSIUM 4.2 mmol/L (3.5-5.1)
[2017-06-27] MEDS: CARBIDOPA/LEVODOPA 25/100MG TAB PO SCH ×3 (08:30→21:02)
[2017-06-27] MEDS: PANTOprazole SOD 40 MG TAB PO SCH ×2 (08:30→21:02)
--- NOTE | 2017-06-27 09:18 | Clinical Documentation Query ---
GALLO Solano : CLINICAL DOCUMENTATION QUERIES QUERY 1 OF 2 Patient is a 72 year old male admitted for evaluation and treatment of GI bleeding. He underwent a colonoscopy on 06/16 and was on Coumadin therapy for atrial fibrillation, history of DVT, history of PE. As clinically appropriate, please provide clinical opinion regarding the etiology of the bleed in your patient. Thank you. In your clinical opinion is this patient being managed for: ( ) GI bleed due to Coumadin ( ) GI bleed due to recent colonoscopy with polypectomies, a complication of care ( ) Not Agree ( ) Other explanation of clinical findings (Please Explain) ( x ) Unable to determine (Please Define) ( ) Need to Discuss The medical record reflects the following clinical findings, treatment, and risk factors. 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 As appropriate, consider documentation as suggested below. In your clinical opinion is this patient being managed for: ( ) (Likely/Suspected)Primary malignant adenocarcinoma of sigmoid colon ( x ) Not Agree ( ) Other explanation of clinical findings (Please Explain) ( ) Unable to determine (Please Define) ( ) Need to Discuss The medical record reflects the following clinical findings, treatment, and risk factors. Clinical Indicators: As above Treatment: GI consultation Risk Factors: Age, known tubular adenoma Please clarify and document your clinical opinion in the progress notes and discharge summary. Terms such as "probable", "suspected", "likely", "questionable", "possible", or "still to be ruled out" are acceptable. IF IN AGREEMENT, YOU MUST DOCUMENT ABOVE DIAGNOSTIC STATEMENT IN DAILY PROGRESS NOTES AND DISCHARGE SUMMARY. This document is not part of the patient's record. Thank You, Pee Kunz RN [phone]
--- NOTE | 2017-06-27 10:23 | Gastrointestinal Consultation ---
Gastrointestinal Consultation Date of Consultation: Jun 27, 2017 Attending Physician: Dr. Lopez Consulting Physician: Dr. 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 Diop on 06/16/17. At that time, he was noted to have 2 sessile cecal polyps removed via hot snare technique. He states that after the procedure , he had been having difficulty with constipation (which is not common for him) . The patient had been taking both Metamucil and MiraLAX. 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 He did contact our office yesterday in this regard and was advised ER evaluation. Since admission, he has not had any further bleeding. He denies any dizziness, shortness of breath, chest pain or fatigue. Hemoglobin is a baseline of 13. On arrival, his hemoglobin was noted to have a hemoglobin of 12.6. Hemoglobin this morning was 11.7. Patient has been made NPO. Past Medical/Surgical History Medical Problems: (1) GI bleed Status: Acute Past Medical History: 1. Hypertension 2. Atrial fibrillation 3. DVT 4. PE 5. Diverticulosis 6. GERD 7. Genital herpes simplex 8. Neoplasm of acoustic nerve 9. Parkinson's disease 10. Peripheral neuropathy 11. Tubular adenoma Past Surgical History: 1. Back surgery 2. Craniotomy excision of acoustic neuroma 3. Knee replacement bilaterally 4. Shoulder surgery Family History Negative for GI malignancy or IBD Social History Smoking Status: Never Smoker Drug Use: none Marital Status: Occupation Status: retired Allergies Coded Allergies: Dronedarone (Verified Adverse Reaction, Mild, FLU LIKE SYMPTOMS, 06/26/17) Adhesives (Verified Adverse Reaction, Unknown, RASH WITH BAND-AIDS, ) Current Medications Home Meds and Scripts Medications Dose Route/Sig Max Daily Dose Days Date Category Dose Instructions Erythromycin 1 Appln/1 Gm Oint 1 Dose TOP BID 06/09/17 Reported Olux-E (Clobetasol Propionate Emulsion) 0.05 % Aer 1 Dose TOP DAILY 06/09/17 Reported Sinemet 25MG/100MG (Carbidopa/Levodopa) Tab 1 Tab PO TID 06/09/17 Reported CeleBREX (Celecoxib) 200 Mg Cap 200 Mg PO QAM 06/09/17 Reported Coumadin (Warfarin Sod) 6 Mg Tab 1 Tab PO 4XWK 06/09/17 Reported SUN,TUES,THURS,SAT Zantac 150 Maximum Streng (Ranitidine Hcl) 150 Mg Tab 150 Mg PO DAILY PRN 10/07/13 Reported Warfarin Sodium 5 Mg Tab 5 Mg PO 3XWK 10/07/13 Reported MON, WED, FRI Centrum Silver (Multiple Vitamins W/ Minerals) 1 Chw Chw 1 Tab PO DAILY 10/07/13 Reported Valtrex (Valacyclovir HCl) 1,000 Mg Tab 1,000 Mg PO UD PRN 07/17/09 Reported Review of Systems See HPI for pertinent positives & negatives. A total of 10 systems reviewed and were otherwise negative. Physical Exam Date Time Temp Pulse Resp B/P (MAP) Pulse Ox O2 Delivery O2 Flow Rate FiO2 06/27/17 08:06 37.0 79 18 150/84 (106) 99 06/27/17 04:24 37.0 61 16 157/88 (111) 97 Room Air 06/27/17 04:20 Room Air 06/27/17 00:16 36.7 64 18 146/79 (101) 96 Room Air 06/27/17 00:10 Room Air 06/26/17 22:28 36.8 78 20 177/90 Room Air 06/26/17 20:12 70 14 98 06/26/17 20:00 139/87 06/26/17 19:57 66 96 06/26/17 19:42 67 12 96 06/26/17 19:37 69 15 97 06/26/17 19:30 145/82 06/26/17 19:22 69 18 97 06/26/17 19:21 158/94 06/26/17 19:07 72 12 06/26/17 19:01 164/94 06/26/17 19:00 67 06/26/17 18:52 69 25 06/26/17 18:37 64 17 100 06/26/17 18:32 66 15 100 06/26/17 18:02 65 20 99 06/26/17 18:00 142/80 06/26/17 17:32 66 97 06/26/17 17:02 65 17 140/76 97 06/26/17 17:02 71 16 140/76 97 Room Air 06/26/17 16:32 68 19 99 06/26/17 16:07 68 06/26/17 16:02 69 22 06/26/17 16:00 150/85 06/26/17 15:31 181/106 06/26/17 15:30 98 Room Air 06/26/17 15:10 36.4 76 20 153/88 98 Room Air General Appearance: WD/WN, no apparent distress Eyes: EOMI ENT: hearing grossly normal Neck: supple Respiratory/Chest: lungs clear, normal breath sounds, no respiratory distress Cardiovascular: regular rate, rhythm, no gallop, no murmur Abdomen: normal bowel sounds, non tender, soft Neurologic/Psych: alert, normal mood/affect, oriented x 3 Skin: no jaundice, warm/dry Laboratory Results Last 24 Hours Test 06/26/17 15:25 06/27/17 07:08 White Blood Count 7.35 K/uL 5.15 K/uL Red Blood Count 4.38 M/uL 3.95 M/uL Hemoglobin 12.6 g/dL 11.7 g/dL Hematocrit 37.9 % 34.2 % Mean Corpuscular Volume 86.5 fL 86.6 fL Mean Corpuscular Hemoglobin 28.8 pg 29.6 pg Mean Corpuscular Hemoglobin Concent 33.2 g/dl 34.2 g/dl Platelet Count 203 K/uL 170 K/uL Mean Platelet Volume 9.6 fL 9.6 fL Neutrophils (%) (Auto) 72.1 % 65.4 % Lymphocytes (%) (Auto) 18.4 % 23.3 % Monocytes (%) (Auto) 6.9 % 8.2 % Eosinophils (%) (Auto) 2.0 % 2.7 % Basophils (%) (Auto) 0.3 % 0.4 % Neutrophils # (Auto) 5.30 K/uL 3.37 K/uL Lymphocytes # (Auto) 1.35 K/uL 1.20 K/uL Monocytes # (Auto) 0.51 K/uL 0.42 K/uL Eosinophils # (Auto) 0.15 K/uL 0.14 K/uL Basophils # (Auto) 0.02 K/uL 0.02 K/uL RDW Standard Deviation 45.2 fL 45.4 fL RDW Coefficient of Variation 14.3 % 14.2 % Immature Granulocyte % (Auto) 0.3 % 0.0 % Immature Granulocyte # (Auto) 0.02 K/uL 0.00 K/uL Prothrombin Time 25.7 SECONDS 25.8 SECONDS Prothromb Time International Ratio 2.3 2.3 Activated Partial Thromboplast Time 38.1 SECONDS Partial Thromboplastin Ratio 1.5 Sodium Level 135 mmol/L 140 mmol/L Potassium Level 4.0 mmol/L 4.2 mmol/L Chloride Level 104 mmol/L 108 mmol/L Carbon Dioxide Level 26 mmol/L 28 mmol/L Anion Gap 5.0 mmol/L 4.0 mmol/L Blood Urea Nitrogen 24 mg/dl 17 mg/dl Creatinine 0.86 mg/dl 0.83 mg/dl Est Creatinine Clear Calc Drug Dose 91.6 ml/min 94.9 ml/min Estimated GFR () 101.1 102.6 Estimated GFR (Non- 87.2 88.5 BUN/Creatinine Ratio 27.4 20.5 Random Glucose 81 mg/dl 84 mg/dl Calcium Level 10.0 mg/dl 9.9 mg/dl Total Bilirubin 0.4 mg/dl Aspartate Amino Transf (AST/SGOT) 19 U/L Alanine Aminotransferase (ALT/SGPT) 10 U/L Alkaline Phosphatase 71 U/L Total Protein 7.1 gm/dl Albumin 3.8 gm/dl Globulin 3.3 gm/dl Albumin/Globulin Ratio 1.2 Magnesium Level 2.2 mg/dl Impression Patient is a 72 year old male with a history of atrial fibrillation, DVT and PE admitted with bright red rectal bleeding and acute blood loss anemia status post colonoscopy with polypectomy. Plan 1. Clear liquid diet today. 2. Bowel prep this evening. 3. Colonoscopy for evaluation by Dr. Diop tomorrow. 4. Continue supportive medical management. Thank you for allowing us to participate in the care of this pleasant patient. If you have any questions or concerns, please do not hesitate to contact us. Agree with CHRISTEL Parsons as above Abd: Soft, NT, ND, +BS Proceed with Colonoscopy for probable post-polypectomy bleed on Coumadin
--- NOTE | 2017-06-27 14:30 | Hospitalist Progress Note ---
Hospitalist Progress Note Date of Service Jun 27, 2017. (Cass Lloyd ., JEAN CARLOS) Subjective Pt evaluation today including: conversation w/ patient, conversation w/ family (/daughter at bedside ), physical exam, lab review, review of studies, review of inpatient medication list Voiding: no voiding problems Patient states he is feeling well. No BM since admission. BM was melanous- denies h/o GI bleed, PUD, or GERD Patient denies any fever, chills, sweats, lightheadedness, dizziness, vision changes, CP, palpitations, edema, SOB, wheezing, cough, abdominal pain, nausea, vomiting, diarrhea, urinary symptoms, melena, numbness/tingling, weakness, muscle/joint pain, anxiety/depression, active bleeding, or new skin discoloration/changes. (Cass Lloyd ., MAXIMUSC) Medications Current Inpatient Medications Medications (Trade) Dose Ordered Sig/Maia Route Start Time Stop Time Status Last Admin Dose Admin Acetaminophen (Tylenol Tab) 650 mg Q4H PRN PO 06/26/17 19:30 07/26/17 19:29 Ondansetron HCl (Zofran Inj) 4 mg Q6H PRN IV 06/26/17 19:30 07/26/17 19:29 Carbidopa/Levodopa (Sinemet 25/ 100MG Tab) 1 tab TID PO 06/26/17 21:00 07/26/17 20:59 06/27/17 13:34 1 TAB Metoprolol Tartrate (Lopressor Iv) 5 mg Q6 PRN IV 06/26/17 19:30 07/26/17 19:29 Pantoprazole Sodium (Protonix Tab) 40 mg BID PO 06/26/17 21:00 07/26/17 20:59 06/27/17 08:30 40 MG Polyethylene Glycol/ Electrolytes (Golytely Soln) 8 dose TODAY@0300,1800 PO 06/27/17 18:00 06/28/17 12:00 (Cass Lloyd, MAXIMUSC) Objective Vital Signs Date Time Temp Pulse Resp B/P (MAP) Pulse Ox O2 Delivery O2 Flow Rate FiO2 06/27/17 12:21 36.8 78 16 143/83 (103) 98 06/27/17 12:20 Room Air 06/27/17 08:10 Room Air 06/27/17 08:06 37.0 79 18 150/84 (106) 99 06/27/17 04:24 37.0 61 16 157/88 (111) 97 Room Air 06/27/17 04:20 Room Air 06/27/17 00:16 36.7 64 18 146/79 (101) 96 Room Air 06/27/17 00:10 Room Air 06/26/17 22:28 36.8 78 20 177/90 Room Air 06/26/17 20:12 70 14 98 06/26/17 20:00 139/87 06/26/17 19:57 66 96 06/26/17 19:42 67 12 96 06/26/17 19:37 69 15 97 06/26/17 19:30 145/82 06/26/17 19:22 69 18 97 06/26/17 19:21 158/94 06/26/17 19:07 72 12 06/26/17 19:01 164/94 06/26/17 19:00 67 06/26/17 18:52 69 25 06/26/17 18:37 64 17 100 06/26/17 18:32 66 15 100 06/26/17 18:02 65 20 99 06/26/17 18:00 142/80 06/26/17 17:32 66 97 06/26/17 17:02 65 17 140/76 97 06/26/17 17:02 71 16 140/76 97 Room Air 06/26/17 16:32 68 19 99 06/26/17 16:07 68 06/26/17 16:02 69 22 06/26/17 16:00 150/85 06/26/17 15:31 181/106 06/26/17 15:30 98 Room Air 06/26/17 15:10 36.4 76 20 153/88 98 Room Air (Cass Lloyd, PA-C) Physical Exam General Appearance: no apparent distress Eyes: normal inspection, PERRL ENT: hearing grossly normal Neck: supple Respiratory/Chest: lungs clear, no respiratory distress, no accessory muscle use Cardiovascular: regular rate, rhythm Abdomen: normal bowel sounds, non tender, soft Extremities: no pedal edema, no calf tenderness Neurologic/Psychiatric: alert, normal mood/affect, oriented x 3 Skin: normal color, warm/dry, no rash (Cass Lloyd, MAXIMUSC) Laboratory Results Last 24 Hours Test 06/26/17 15:25 06/27/17 07:08 White Blood Count 7.35 K/uL 5.15 K/uL Red Blood Count 4.38 M/uL 3.95 M/uL Hemoglobin 12.6 g/dL 11.7 g/dL Hematocrit 37.9 % 34.2 % Mean Corpuscular Volume 86.5 fL 86.6 fL Mean Corpuscular Hemoglobin 28.8 pg 29.6 pg Mean Corpuscular Hemoglobin Concent 33.2 g/dl 34.2 g/dl Platelet Count 203 K/uL 170 K/uL Mean Platelet Volume 9.6 fL 9.6 fL Neutrophils (%) (Auto) 72.1 % 65.4 % Lymphocytes (%) (Auto) 18.4 % 23.3 % Monocytes (%) (Auto) 6.9 % 8.2 % Eosinophils (%) (Auto) 2.0 % 2.7 % Basophils (%) (Auto) 0.3 % 0.4 % Neutrophils # (Auto) 5.30 K/uL 3.37 K/uL Lymphocytes # (Auto) 1.35 K/uL 1.20 K/uL Monocytes # (Auto) 0.51 K/uL 0.42 K/uL Eosinophils # (Auto) 0.15 K/uL 0.14 K/uL Basophils # (Auto) 0.02 K/uL 0.02 K/uL RDW Standard Deviation 45.2 fL 45.4 fL RDW Coefficient of Variation 14.3 % 14.2 % Immature Granulocyte % (Auto) 0.3 % 0.0 % Immature Granulocyte # (Auto) 0.02 K/uL 0.00 K/uL Prothrombin Time 25.7 SECONDS 25.8 SECONDS Prothromb Time International Ratio 2.3 2.3 Activated Partial Thromboplast Time 38.1 SECONDS Partial Thromboplastin Ratio 1.5 Sodium Level 135 mmol/L 140 mmol/L Potassium Level 4.0 mmol/L 4.2 mmol/L Chloride Level 104 mmol/L 108 mmol/L Carbon Dioxide Level 26 mmol/L 28 mmol/L Anion Gap 5.0 mmol/L 4.0 mmol/L Blood Urea Nitrogen 24 mg/dl 17 mg/dl Creatinine 0.86 mg/dl 0.83 mg/dl Est Creatinine Clear Calc Drug Dose 91.6 ml/min 94.9 ml/min Estimated GFR () 101.1 102.6 Estimated GFR (Non- 87.2 88.5 BUN/Creatinine Ratio 27.4 20.5 Random Glucose 81 mg/dl 84 mg/dl Calcium Level 10.0 mg/dl 9.9 mg/dl Total Bilirubin 0.4 mg/dl Aspartate Amino Transf (AST/SGOT) 19 U/L Alanine Aminotransferase (ALT/SGPT) 10 U/L Alkaline Phosphatase 71 U/L Total Protein 7.1 gm/dl Albumin 3.8 gm/dl Globulin 3.3 gm/dl Albumin/Globulin Ratio 1.2 Magnesium Level 2.2 mg/dl (Cass Lloyd, JEAN CARLOS) Assessment and Plan This is a 72-year-old male with past medical history of hypertension, atrial fibrillation, history of DVT, hx of PEs, deficiency of clotting factor, Parkinsons disease, [place] palsy, hx of acoustic neuroma s/p removal, diverticulosis, hx of tubular adenoma 3 years ago,GERD, mild sleep apnea, osteoarthritis, genital herpes simplex, and spinal stenosis who presents to the ER with dark stools and episode of bright red blood per rectum 2 days. Dark Tarry stools and BRBPR x 2 days, secondary to GI bleed: - Admit to tele for cardiac monitoring - Follow H&H, baseline Hgb ~13- STABLE - Hold Coumadin - Type/screen, type/crossmatch completed- 2 u PRBCs held - Protonix 40 mg BID - Hold Celebrex, ?upper GI bleed w/ melanous stools- follow GI recommendations - Consult GI, appreciate recommendations -- Planning for colonoscopy on 06/28- bowel prep this PM h/o GERD: Takes Ranitidine 2-3 times per month on an as-needed basis, but no PPI regularly- Protonix 40 mg BID while inpatient Diverticular disease: No abdominal tenderness Atrial fibrillation s/p ablation therapy in 2013, IVC filter placement, h/o DVT in 2009/PEs in 1979 and 1986: - Holding chronic anticoagulation w/ Coumadin 5 mg on MWF and 6 mg on TThSS - Follow INR HTN- STABLE: IV Lopressor PRN Parkinson's disease, [place] palsy, peripheral neuropathy, fine tremor- follows w / Dr. Macdonald: Continue Sinemet 25-100 mg TID h/o acoustic neuroma s/p craniotomy Mild sleep apnea: Patient does not require supplemental O2 DVT prophylaxis: Teds, SCDs, hold Coumadin for now with GI bleed CODE STATUS: LEVEL I, FULL Disposition: From home, lives w/ family- no discharge needs anticipated (Cass Lloyd, JEAN CARLOS) Reviewed: Pt Seen/Exam by Me (Mireya Everett MD) History Resident Physician Supervision Note: I interviewed and examined the patient. Discussed with LIBAN Lloyd and agree with findings and plan as documented in the note. Any exceptions or clarifications are listed here: Patient feeling well, no further bleeding since admission. No chest pain or shortness of breath. 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 -Plan for colonoscopy tomorrow and can possibly be discharged home after that if no further bleeding and if hemoglobin stable in the morning. -Continue to hold Coumadin but restart in the very near future given his prothrombin 3 gene mutation and history of multiple DVTs and PEs Documented By: Mireya Everett (Mireya Everett MD)
[2017-06-27] MEDS: LAVAGE SOLUTION 4000ML PO SCH (17:48)
[2017-06-28] VITALS (10 sets, daily range): BP systolic 124–157; BP diastolic 69–95; PULSE 61–82; TEMP 36.5–36.8; O2SAT 95–99
[2017-06-28] MEDS: LAVAGE SOLUTION 4000ML PO SCH (02:58)
[2017-06-28 08:11] LABS: BASO % 0.4 %; BASO ABS # 0.02 K/uL (0-0.2); COMPLETE YES; EOS % 1.1 %; HEMATOCRIT 34.1 % (42-52); IG% 0.2 %; LYMPH % 19.8 %; LYMPH ABS # 1.04 K/uL (1.2-3.4); MEAN CELL VOLUME 86.3 fL (80-100); MEAN CORPUSCULAR HEMOGLOBIN 28.9 pg (25-34); MEAN CORPUSCULAR HGB CONC 33.4 g/dl (32-36); MEAN PLATELET VOLUME 9.2 fL (7.4-10.4); NEUT % 70.5 %; PLATELET COUNT 168 K/uL (130-400); RED BLOOD COUNT 3.95 M/uL (4.7-6.1); WHITE BLOOD COUNT 5.24 K/uL (4.8-10.8)
[2017-06-28 08:18] LABS: PROTHROMBIN TIME (PATIENT) 22.2 SECONDS (9.0-12.0)
[2017-06-28] MEDS: CARBIDOPA/LEVODOPA 25/100MG TAB PO SCH ×2 (08:38→13:39)
[2017-06-28] MEDS: PANTOprazole SOD 40 MG TAB PO SCH (08:38)
[2017-06-28 08:48] LABS: BUN/CREATININE RATIO 17.7 (10-20); CALCIUM 10.1 mg/dl (8.5-10.1); CREATININE 0.77 mg/dl (0.60-1.40); POTASSIUM 3.6 mmol/L (3.5-5.1)
[2017-06-28] MEDS ORDERED: LIDOCAINE HCL 2% 2 ML VIAL (20MG/ML) ONE (11:06)
[2017-06-28] MEDS ORDERED: PROPOFOL IV EMULSION 10 MG/ML 20 ML VIAL IV ONE (11:06)
--- NOTE | 2017-06-28 11:37 | GI REPORT ---
Procedure Date: 06/28/2017 10:51 AM Procedure: Colonoscopy Indications: Treatment of bleeding from polypectomy site Medicines: Monitored Anesthesia Care Complications: No immediate complications. Estimated Blood Loss: Estimated blood loss: none. Procedure: Pre-Anesthesia Assessment: - Prior to the procedure, a History and Physical was performed, and patient medications and allergies were reviewed. The patient's tolerance of previous anesthesia was also reviewed. The risks and benefits of the procedure and the sedation options and risks were discussed with the patient. All questions were answered, and informed consent was obtained. Prior Anticoagulants: The patient has taken Coumadin (warfarin), last dose was 2 days prior to procedure. ASA Grade Assessment: III - A patient with severe systemic disease. After reviewing the risks and benefits, the patient was deemed in satisfactory condition to undergo the procedure. After I obtained informed consent, the scope was passed under direct vision. Throughout the procedure, the patient's blood pressure, pulse, and oxygen saturations were monitored continuously. The scope was introduced through the anus and advanced to the cecum, identified by appendiceal orifice and ileocecal valve. The colonoscopy was performed without difficulty. The patient tolerated the procedure well. The quality of the bowel preparation was fair. The ileocecal valve, appendiceal orifice, and rectum were photographed. Findings: Oozing blood was seen in the cecum, secondary to previous polypectomy procedure. To stop active bleeding, three hemostatic clips were successfully placed (MR conditional). There was no bleeding at the end of the procedure. Multiple small-mouthed diverticula were found in the sigmoid colon. Non-bleeding internal hemorrhoids were found during retroflexion. The hemorrhoids were small. Impression: - Bleeding in the cecum secondary to previous polypectomy. Clips (MR conditional) were placed. - Diverticulosis in the sigmoid colon. - Non-bleeding internal hemorrhoids. - No specimens collected. Recommendation: - [facility]. - Advance diet as tolerated. - Resume Coumadin (warfarin) at prior dose today. Refer to managing physician for further adjustment of therapy. - Return to primary care physician as previously scheduled. Farhat Diop DO 06/28/2017 11:36:54 AM This report has been signed electronically. Note Initiated On: 06/28/2017 10:51 AM I attest to the content of the Intraoperative Record and orders documented therein, exceptions below
--- NOTE | 2017-06-28 11:47 | Anesthesiology Progress Note ---
Anesthesia Post Op Note Date & Time Jun 28, 2017 at 11:47 Vital Signs Pain Intensity: 0.0 Vital Signs Past 12 Hours Date Time Temp Pulse Resp B/P (MAP) Pulse Ox O2 Delivery O2 Flow Rate FiO2 06/28/17 10:41 36.8 77 18 122/68 (86) 98 Room Air 06/28/17 09:19 36.8 76 18 124/69 99 Room Air 06/28/17 08:00 Room Air 06/28/17 07:46 36.8 76 18 124/69 (87) 99 06/28/17 04:42 Room Air 06/28/17 04:00 36.7 68 17 125/74 (91) 95 Room Air 06/28/17 00:29 Room Air Notes Mental Status: alert / awake / arousable, participated in evaluation Pt Amnestic to Procedure: Yes Nausea / Vomiting: adequately controlled Pain: adequately controlled Airway Patency, RR, SpO2: stable & adequate BP & HR: stable & adequate Hydration State: stable & adequate Anesthetic Complications: no major complications apparent
--- NOTE | 2017-06-28 13:18 | Discharge Instructions ---
Discharge Instructions Date of Service Jun 28, 2017. Admission Reason for Admission: GI Bleed Discharge Discharge Diagnosis / Problem: GI Bleed Discharge Goals Goal(s): Improve disease control, Therapeutic intervention Activity Recommendations Activity Limitations: resume your previous activity Driving or Machine Use: resume 1 day after discharge . Instructions / Follow-Up Instructions / Follow-Up You were admitted with GI bleeding from your previous polypectomy site. You had this area clipped and the bleeding stopped during a colonoscopy. Your blood count only had a very mild drop and this should recover on its own in a couple of weeks. It is safe for you to restart your coumadin and have your INR checked on Monday. Please follow up with Dr. Chicas within 1-2 weeks. Current Hospital Diet Patient's current hospital diet: Clear Liquid Diet Discharge Diet Recommended Diet: AHA Diet (Heart Healthy) Procedures Procedures Performed: COLONOSCOPY WITH CLIP PLACEMENT ON POST POLYPECTOMY SITES Pending Studies Studies pending at discharge: no Medical Emergencies . Who to Call and When: Medical Emergencies: If at any time you feel your situation is an emergency, please call 911 immediately. . Non-Emergent Contact Non-Emergency issues call your: Primary Care Provider Call Non-Emergent contact if: you have a fever, your pain is not controlled, your pain is worsening, you have any medication questions you have return of your bleeding . . "Provider Documentation" section prepared by Mireya Everett. . VTE Core Measure Inpt VTE Proph given/why not?: Warfarin (Coumadin), T.E.DYamilet Stockings, SCD's
[2017-06-28] MEDS ORDERED: WARFARIN SOD 5 MG TAB PO SCH (16:00)
[2017-06-29] MEDS ORDERED: WARFARIN SOD 6 MG TAB PO SCH (16:00)
--- NOTE | 2017-07-10 00:02 | Discharge Summary ---
Discharge Summary Date of Service Jun 28, 2017. 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 Rule out perf pain COMPARISON STUDY: 09/15/2014 FINDINGS: Chronic pleural reactive change left base laterally. Slight shows a prominent also considered chronic. No focal infiltrate. Heart top limits normal in terms of size. IMPRESSION: Chronic change. No acute process. Consultations: Gastroenterology Medication Reconciliation Continued Medications: Carbidopa/Levodopa (Sinemet 25MG/100MG) Tab 1 TAB PO TID Celecoxib (CeleBREX) 200 Mg Cap 200 MG PO QAM Clobetasol Propionate Emulsion (Olux-E) 0.05 % Aer 1 DOSE TOP DAILY Erythromycin (Erythromycin) 1 Appln/1 Gm Oint 1 DOSE TOP BID Multiple Vitamins W/ Minerals (Centrum Silver) 1 Chw Chw 1 TAB PO DAILY Ranitidine Hcl (Zantac 150 Maximum Streng) 150 Mg Tab 150 MG PO DAILY PRN for Indigestion Valacyclovir (Valtrex) 1,000 Mg Tab 1000 MG PO UD PRN for BREAKOUT Warfarin Sod (Coumadin) 6 Mg Tab 1 TAB PO 4XWK SUN,TUES,THURS,SAT Warfarin Sodium (Warfarin Sodium) 5 Mg Tab 5 MG PO 3XWK MON, WED, FRI Referrals At Discharge Follow up Referrals: Physician Referral - Within 1-2 Weeks with Filipe Chicas M.D. Discharge Exam Pt had colonoscopy today and found bleeding from previous polypectomy site in the cecum. This was clipped and bleeding was stopped. Pt has no abd pain, no GI bleeding, no CP or SOB. PHYSICAL EXAM: Vitals reviewed, telemetry with normal sinus rhythm No acute distress, alert awake oriented 3 HEENT-large scar and right side of head from previous extensive acoustic neuroma removal, with right-sided facial paralysis that is chronic Regular rate and rhythm no murmurs rubs Lungs clear to auscultation bilaterally no wheezes crackles rhonchi, breathing unlabored Abdomen positive bowel sounds, soft, nontender, nondistended Extremities no edema, 2 posterior cells pedis pulses, no calf tenderness Skin no rashes Review of Systems: Constitutional: No fever Eyes: No problem reported ENT: + hearing loss Respiratory: No shortness of breath Cardiovascular: No chest pain Abdomen: No pain Musculoskeletal: No problem reported Genitourinary - Male: No problem reported Neurologic: No problem reported Psychiatric: No problem reported Endocrine: No problem reported Hematologic / Lymphatic: + clotting problems Integumentary: No problem reported Hospital Course This is a 72-year-old male with past medical history of hypertension, atrial fibrillation, history of DVT, hx of PEs, deficiency of clotting factor, Parkinson's disease, facial nerve paralysis, hx of acoustic neuroma s/p removal , diverticulosis, hx of tubular adenoma 3 years ago,GERD, mild sleep apnea, osteoarthritis, genital herpes simplex, and spinal stenosis who presents to the ER with dark stools and episode of bright red blood per rectum 2 days. BRBPR x 2 days, secondary to GI bleed, Acute blood loss anemia-hgb with only modest drop to 11.4 from baseline 13 - Admitted to [facility] for cardiac monitoring -no concerns on telemetry - Coumadin was held and he underwent prep for colonoscopy. This revealed bleeding at site of previous polypectomy and was clipped. He did not require a blood transfusion this stay. GI said it was safe to restart his coumadin after the procedure as bleeding was stopped. He was stable for discharge to home later that day after the colonoscopy. He should f/u with his PCP within 1 week and check INR in 2-3 days All other meds were continued as before on discharge. Total Time Spent: Greater than 30 minutes This includes examination of the patient, discharge planning, medication reconciliation, and communication with other providers. Discharge Instructions Please refer to the electronic Patient Visit Report (Discharge Instructions) for additional information. Follow-Up PCP within 1 week Additional Copies To Filipe Chicas M.D.
== END 2017-06-28 18:40 | disposition home or self-care (01) | DRG 920 ==
LOC: C.EDB 15:05 → C.2T 19:29 → ENRESERV 19:53
PROVIDERS: ADMIT Hospitalist; ATTEND Family Medicine
PROC: 0W3P8ZZ Control Bleeding in Gastrointestinal Tract, Via Natural or Artificial Opening Endoscopic (ICD-10-PCS; principal; 2017-06-28 10:31)
DX: K91.840 Postprocedural hemorrhage of a digestive system organ or structure following a digestive system procedure (principal); K92.1 Melena; D68.2 Hereditary deficiency of other clotting factors; K57.30 Diverticulosis of large intestine without perforation or abscess without bleeding; Z79.01 Long term (current) use of anticoagulants; Z86.711 Personal history of pulmonary embolism; K64.8 Other hemorrhoids; G20 Parkinson's disease; Z96.653 Presence of artificial knee joint, bilateral; I10 Essential (primary) hypertension; I48.91 Unspecified atrial fibrillation; K21.9 Gastro-esophageal reflux disease without esophagitis; Z86.718 Personal history of other venous thrombosis and embolism; G51.0 Bell's palsy; Y83.8 Other surgical procedures as the cause of abnormal reaction of the patient, or of later complication, without mention of misadventure at the time of the procedure; Y92.019 Unspecified place in single-family (private) house as the place of occurrence of the external cause

== ENCOUNTER → 2017-07-06 | Outpatient (CLI) | payer BC ==
[~2017-07-06] MED LIST changes: -ACET-1256 PO
[2017-07-06 09:37] LABS: BASO % 0.7 %; BASO ABS # 0.03 K/uL (0-0.2); COMPLETE YES; EOS % 2.9 %; HEMATOCRIT 37.6 % (42-52); IG% 0.2 %; LYMPH ABS # 1.06 K/uL (1.2-3.4); MEAN CELL VOLUME 88.5 fL (80-100); MEAN CORPUSCULAR HEMOGLOBIN 28.9 pg (25-34); MEAN CORPUSCULAR HGB CONC 32.7 g/dl (32-36); MEAN PLATELET VOLUME 9.6 fL (7.4-10.4); MONO % 9.3 %; NEUT % 60.9 %; PLATELET COUNT 224 K/uL (130-400); RED BLOOD COUNT 4.25 M/uL (4.7-6.1); WHITE BLOOD COUNT 4.07 K/uL (4.8-10.8)
[2017-07-06 09:49] LABS: URINE APPEARANCE CLEAR (CLEAR); URINE BILIRUBIN NEG (NEG); URINE COLOR DK YELLOW; URINE NITRITE NEG (NEG); URINE PH 5.5 (4.5-7.5); URINE SPECIFIC GRAVITY 1.022 (1.000-1.030); UROBILINOGEN NEG (NEG)
[2017-07-06 09:53] LABS: ESTIMATED AVERAGE GLUCOSE 108 mg/dl; HA1C FLAG Normal (Normal)
[2017-07-06 09:56] LABS: BLOOD UREA NITROGEN 15 mg/dl (7-18); BUN/CREATININE RATIO 16.2 (10-20); CALCIUM 10.6 mg/dl (8.5-10.1); CARBON DIOXIDE 28 mmol/L (21-32); CHLORIDE 107 mmol/L (98-107); CHOLESTEROL 222 mg/dl (0-200); CREATININE 0.92 mg/dl (0.60-1.40); GLUCOSE 91 mg/dl (70-99); POTASSIUM 4.5 mmol/L (3.5-5.1); SODIUM 139 mmol/L (136-145); TRIGLYCERIDES 47 mg/dl (0-150); VERY LOW DENSITY LIPOPROT CALC 9 mg/dl
[2017-07-06 10:01] LABS: CHOLESTEROL/HDL RATIO 2.3; HDL CHOLESTEROL 96 mg/dl; LDL CHOLESTEROL CALCULATED 117 mg/dl
[2017-07-06 10:03] LABS: MANUAL MICROSCOPIC REQUIRED? NO; REVIEW REQ? NO
--- NOTE | 2017-07-18 11:12 | CODING QUERY MEDICAL NECESSITY ---
CQSUPPORTING DIAGNOSIS NEEDED A supporting diagnosis is required for the test/procedure performed on this patient in order for us to be reimbursed by the patient's insurance. Please provide a supporting diagnosis for the following test/procedure listed below next to the test name along with your signature. *If there is no additional diagnosis for this patient that would support the following test/procedure please document that below next to the test/procedure. Test(s)/Procedure(s) that require a supporting diagnosis: DOS 07/06/17 GLYCATED HEMOGLOBIN TEST PROSTATE SPECIFIC TEST Provider Signature: Date: Thank you Kayla Norton Health Information Management Once completed, please kindly fax back to [phone] For questions please call [phone]
== END | disposition home or self-care (01) ==
LOC: C.LAB1850 07:48
PROVIDERS: ATTEND Internal Medicine
DX: Z00.00 Encounter for general adult medical examination without abnormal findings (principal); I10 Essential (primary) hypertension

== ENCOUNTER → 2018-01-04 | Day surgery (SDC) | payer BC ==
[2017-12-20 10:41] VITALS: Ht 188 cm; Wt 100.0 kg
[~2018-01-04] VITALS: Ht 188 cm; Wt 100.0 kg
[~2018-01-04] MED LIST changes: +FERR1TAB62 PO; +LIDOCAINE HCL 2% 2 ML VIAL (20MG/ML) ONE; -MULTCHW PO; +PROPOFOL IV EMULSION 10 MG/ML 20 ML VIAL IV ONE; +RASA1TAB4 PO; +TADA10TA PO; -VALA1TAB PO; +VALA1TAB2 PO; +[UNRECOGNIZED DRUG - CODE] TOP; -[UNRECOGNIZED DRUG - CODE] TOP
[2018-01-04 13:06] VITALS: TEMP 36.5
--- NOTE | 2018-01-04 13:07 | Endo History and Physical ---
History & Physical Date of Service: Jan 04, 2018. Chief Complaint: rectal bleeding Referring Physician: Dr Chicas History of Present Illness For colonoscopy Past Surgical History Hx Cardiac Surgery: Yes (CARDIOVERSION, CARDIAC ABLATION) Hx Internal Defibrillator: No Hx Pacemaker: No Hx Abdominal Surgery: No Hx Post-Op Nausea and Vomiting: No Hx Cancer Surgery: Yes (COLON POLYPECTOMY) Hx Thoracic Surgery: No Hx Orthopedic: Yes (LT/RT KNEE SURGERY X4, LT/RT TKA, LT/RT SHOULDER, L5-4 SPINAL SURGERY X3) Hx Urinary Tract Surgery: No Family History Colon CA, Polyp Social History Smoking Status: Never Smoker Hx Substance Use: No Hx Alcohol Use: No Allergies Coded Allergies: Dronedarone (Verified Adverse Reaction, Mild, FLU LIKE SYMPTOMS, 12/20/17) Adhesives (Verified Adverse Reaction, Unknown, RASH WITH BAND-AIDS, 12/20/17 ) Current Medications Reported Home Medications Medications Dose Route/Sig Max Daily Dose Days Date Category Dose Instructions Valtrex (Valacyclovir Hcl) 1 Gm Tab 1,000 Mg PO TID PRN 12/20/17 Reported Cialis (Tadalafil) 10 Mg Tab 10 Mg PO UD 12/20/17 Reported Rasagiline Mesylate 1 Mg Tab 1 Mg PO QAM 12/20/17 Reported INSTRUCTED TO HOLD 2 WEEKS PER ANESTHESIA-PT WILL OK WITH RX'ING Ferrous Sulfate 325 Mg Tab 325 Mg PO BID 12/20/17 Reported Erythromycin 1 Appln/1 Gm Oint 1 Dose TOP BID 06/09/17 Reported Olux-E (Clobetasol Propionate Emulsion) 0.05 % Aer 1 Dose TOP DAILY 06/09/17 Reported Sinemet 25MG/100MG (Carbidopa/Levodopa) Tab 1 Tab PO TID 06/09/17 Reported CeleBREX (Celecoxib) 200 Mg Cap 200 Mg PO QAM 06/09/17 Reported Coumadin (Warfarin Sod) 6 Mg Tab 1 Tab PO 4XWK 06/09/17 Reported SUN,TUES,THURS,SAT Zantac 150 Maximum Streng (Ranitidine Hcl) 150 Mg Tab 150 Mg PO DAILY PRN 10/07/13 Reported Warfarin Sodium 5 Mg Tab 5 Mg PO 3XWK 10/07/13 Reported MON, WED, FRI Vital Signs Weight (Kilograms): 100 Height (Feet): 6 Height (Inches): 2 Physical Exam General Appearance: WD/WN, + pertinent finding (bradykinesia) Respiratory/Chest: Respiratory effort: no dyspnea Cardiovascular: Heart Auscultation: RRR Abdomen: Inspection & Palpation: soft Assessment and Plan Rectal bleeding for colonoscopy
--- NOTE | 2018-01-04 13:42 | Discharge Instructions ---
Endoscopy Patient Instructions Date / Procedure(s) Performed Jan 04, 2018. Colonoscopy Allergy Information Coded Allergies: Dronedarone (Verified Adverse Reaction, Mild, FLU LIKE SYMPTOMS, 12/20/17) Adhesives (Verified Adverse Reaction, Unknown, RASH WITH BAND-AIDS, 12/20/17 ) Discharge Date / Findings Jan 04, 2018. Hemorrhoids, diverticulosis Medication Instructions Stopped Medication(s): see med rec Restart Stopped Medication(s): resume meds Reported Home Medications Medications Dose Route/Sig Max Daily Dose Days Date Category Dose Instructions Valtrex (Valacyclovir Hcl) 1 Gm Tab 1,000 Mg PO TID PRN 12/20/17 Reported Cialis (Tadalafil) 10 Mg Tab 10 Mg PO UD 12/20/17 Reported Rasagiline Mesylate 1 Mg Tab 1 Mg PO QAM 12/20/17 Reported INSTRUCTED TO HOLD 2 WEEKS PER ANESTHESIA-PT WILL OK WITH RX'ING Ferrous Sulfate 325 Mg Tab 325 Mg PO BID 12/20/17 Reported Erythromycin 1 Appln/1 Gm Oint 1 Dose TOP BID 06/09/17 Reported Olux-E (Clobetasol Propionate Emulsion) 0.05 % Aer 1 Dose TOP DAILY 06/09/17 Reported Sinemet 25MG/100MG (Carbidopa/Levodopa) Tab 1 Tab PO TID 06/09/17 Reported CeleBREX (Celecoxib) 200 Mg Cap 200 Mg PO QAM 06/09/17 Reported Coumadin (Warfarin Sod) 6 Mg Tab 1 Tab PO 4XWK 06/09/17 Reported SUN,TUES,THURS,SAT Zantac 150 Maximum Streng (Ranitidine Hcl) 150 Mg Tab 150 Mg PO DAILY PRN 10/07/13 Reported Warfarin Sodium 5 Mg Tab 5 Mg PO 3XWK 10/07/13 Reported MON, WED, FRI Provider Instructions Activity Restrictions - No exercising or heavy lifting for 24 hours. - Do not drink alcohol the day of the procedure. - Do not drive a car or operate machinery until the day after the procedure. - Do not make any important decisions or sign important papers in 24 hours after the procedure. Following Day: - Return to full activity which may include returning to work/school. Diet Start your diet with liquids and light foods (jello, soup, juice, toast). Then eat your usual diet if not nauseated. Treatment For Common After Affects For mild abdominal pain, bloating, or excessive gas: - Rest - Eat lightly - Lie on right side Follow-Up Information Follow-up with Dr. Filipe Chicas as scheduled Anesthesia Information What You Should Know You have had a procedure that required some medicine to reduce anxiety and discomfort. This treatment is called moderate sedation. After receiving the treatment, you may be sleepy, but you will be able to breathe on your own. The effects of the treatment may last for several hours. Follow these instructions along with Activity/Diet recommendations noted above: * Do NOT do anything where dizziness or clumsiness would be dangerous. * Rest quietly at home today, then you can be up and about tomorrow. * Have a responsible person stay with you the rest of today. * You may have had an I.V. today. If so, you may take the dressing off later today. Recommendations Call your doctor if: * Trouble breathing * Continuous vomiting for more than 24 hours * Temperature above 101 degrees * Severe abdominal pain or bloating * Pain not relieved by pain medicine ordered * There is increased drainage or redness from any incision * A large amount of rectal bleeding greater than 2-3 tablespoons. (If you had a polyp/s removed or have hemorrhoids, a small amount of blood - from the rectum is to be expected.) * You have any unanswered questions or concerns. IN THE EVENT OF A SERIOUS EMERGENCY, GO TO THE NEAREST EMERGENCY ROOM Your discharge instructions were prepared by provider Vik Martinez. Patient Instructions Signature Page Kimo Corteso Patient (or Guardian) Signature/Date: I have read and understand the instructions given to me by my caregivers. Caregiver/RN/Doctor Signature/Date: The above-named patient and/or guardian has received patient instructions on this date. + Original Patient Signature Page (only) stays with chart. Please make copy for patient.
--- NOTE | 2018-01-04 13:45 | GI REPORT ---
Procedure Date: 01/04/2018 1:05 PM Procedure: Colonoscopy Indications: Rectal bleeding Medicines: Propofol total dose 300 mg IV, Lidocaine 40 mg IV Complications: No immediate complications. Estimated Blood Loss: Estimated blood loss: none. Procedure: Pre-Anesthesia Assessment: - Prior to the procedure, a History and Physical was performed, and patient medications, allergies and sensitivities were reviewed. The patient's tolerance of previous anesthesia was reviewed. - The risks and benefits of the procedure and the sedation options and risks were discussed with the patient. All questions were answered and informed consent was obtained. After I obtained informed consent, the scope was passed under direct vision. Throughout the procedure, the patient's blood pressure, pulse, and oxygen saturations were monitored continuously. The Scope was introduced through the anus and advanced to the cecum, identified by appendiceal orifice and ileocecal valve. The colonoscopy was performed without difficulty. The patient tolerated the procedure well. The quality of the bowel preparation was fair. Findings: Non-bleeding internal hemorrhoids were found during endoscopy. The hemorrhoids were mild. Multiple diverticula were found in the sigmoid colon. Impression: - Preparation of the colon was fair. - Non-bleeding internal hemorrhoids. - Diverticulosis in the sigmoid colon. - No specimens collected. Recommendation: - Discharge patient to home (ambulatory). - Continue present medications. - Repeat colonoscopy in 5 years for surveillance. - Return to primary care physician PRN. Vik Martinez M.D. Vik Martinez MD 01/04/2018 1:45:02 PM This report has been signed electronically. Note Initiated On: 01/04/2018 1:05 PM I attest to the content of the Intraoperative Record and orders documented therein, exceptions below
[2018-01-04 14:17] VITALS: BP 144/82; PULSE 62; O2SAT 96
--- NOTE | 2018-01-04 14:26 | Anesthesiology Progress Note ---
Anesthesia Post Op Note Date & Time Jan 04, 2018 at 14:26 Vital Signs Pain Intensity: 0 Vital Signs Past 12 Hours Date Time Temp Pulse Resp B/P (MAP) Pulse Ox O2 Delivery O2 Flow Rate FiO2 01/04/18 14:17 62 16 144/82 (102) 96 Room Air 01/04/18 14:02 60 16 156/85 (108) 96 Room Air 01/04/18 13:47 58 16 137/82 (100) 97 Room Air 01/04/18 13:06 36.5 71 16 197/105 (135) 95 Room Air Notes Mental Status: alert / awake / arousable, participated in evaluation Pt Amnestic to Procedure: Yes Nausea / Vomiting: adequately controlled Pain: adequately controlled Airway Patency, RR, SpO2: stable & adequate BP & HR: stable & adequate Hydration State: stable & adequate Anesthetic Complications: no major complications apparent
== END | disposition home or self-care (01) ==
LOC: C.GI 12:36
PROVIDERS: ATTEND Internal Medicine Gastroenterology
DX: K62.5 Hemorrhage of anus and rectum (principal); K64.8 Other hemorrhoids; K57.30 Diverticulosis of large intestine without perforation or abscess without bleeding; G47.33 Obstructive sleep apnea (adult) (pediatric); G20 Parkinson's disease; I48.92 Unspecified atrial flutter; M19.90 Unspecified osteoarthritis, unspecified site; Z90.89 Acquired absence of other organs; Z96.653 Presence of artificial knee joint, bilateral; Z98.890 Other specified postprocedural states; Z79.899 Other long term (current) drug therapy; Z79.01 Long term (current) use of anticoagulants; Z80.0 Family history of malignant neoplasm of digestive organs

== ENCOUNTER → 2018-05-15 | Outpatient (CLI) | payer BC ==
[~2018-05-15] MED LIST changes: -LIDOCAINE HCL 2% 2 ML VIAL (20MG/ML) ONE; -PROPOFOL IV EMULSION 10 MG/ML 20 ML VIAL IV ONE
--- NOTE | 2018-05-15 13:01 | DIAGNOSTIC IMAGING REPORT ---
CHEST 2 VIEWS ROUTINE CLINICAL HISTORY: W19.XXXA,Z00.00 trauma. Pain. COMPARISON STUDY: 06/26/2017 FINDINGS: Chronic pleural thickening left base laterally. Lungs otherwise are clear. No significant cardiac enlargement. Degenerative and old posttraumatic changes to the shoulders bilaterally. IMPRESSION: Chronic change. No acute process. The above report was generated using voice recognition software. It may contain grammatical, syntax or spelling errors. Electronically signed by: Mansoor Miller M.D. 05/15/2018 12:59 PM Dictated Date/Time: 05/15/2018 12:59 PM
--- NOTE | 2018-05-15 13:03 | DIAGNOSTIC IMAGING REPORT ---
L RIBS UNILATERAL MIN 2 VIEWS CLINICAL HISTORY: W19.XXXA,Z00.00 COMPARISON STUDY: No previous studies for comparison. FINDINGS: Negative study left ribs. No acute process. No fracture or dislocation. Degenerative change left shoulder. Chronic pleural and parenchymal scarring left base laterally. IMPRESSION: No acute process. The above report was generated using voice recognition software. It may contain grammatical, syntax or spelling errors. Electronically signed by: Mansoor Miller M.D. 05/15/2018 1:01 PM Dictated Date/Time: 05/15/2018 1:00 PM
== END | disposition home or self-care (01) ==
LOC: C.RAD1850 12:32
PROVIDERS: ATTEND Internal Medicine
DX: Z00.00 Encounter for general adult medical examination without abnormal findings (principal); W19.XXXA Unspecified fall, initial encounter

== ENCOUNTER 2021-09-01 18:09 | Observation (INO) ==
--- NOTE | 2021-09-01 18:44 | XRay Report ---
XR chest 1V portable CLINICAL HISTORY: Atypical chest pain TECHNIQUE: Single frontal radiograph of the chest was obtained. Comparison: None available at the time of this dictation. FINDINGS: No lines and tubes are seen. The cardiomediastinal silhouette is normal. The lungs are clear. No evid ence of pleural effusion or pneumothorax. IMPRESSION: No acute chest disease. ACT 112: Negative or not required by law. Electronically signed by: Benito Frausto M.D. 09/01/2021 6:43 PM
[2021-09-01 18:46] LABS: Basophils # (auto) 0.03 K/uL (0-0.2); Basophils % (auto) 0.5 %; Eosinophils # (auto) 0.12 K/uL (0-0.5); Eosinophils % (auto) 1.9 %; Hematocrit (blood only) 40.6 % (42-52); Hemoglobin 13.4 g/dL (14.0-18.0); Immature Granulocytes # (auto) 0.08 K/uL (0.00-0.02); Immature Granulocytes % (auto) 1.3 %; Lymphocytes # (auto) 1.64 K/uL (1.2-3.4); Lymphocytes % (auto) 26.1 %; Mean Corpuscular Hemoglobin 29.5 pg (25-34); Mean Corpuscular Volume 89.2 fL (80-100); Mean Platelet Volume 9.8 fL (7.4-10.4); Monocytes # (auto) 0.56 K/uL (0.11-0.59); Monocytes % (auto) 8.9 %; Neutrophils # (auto) 3.85 K/uL (1.4-6.5); Neutrophils % (auto) 61.3 %; Platelet Count 206 K/uL (130-400); RDW Coefficient of Variation 14.3 % (11.5-14.5); RDW Standard Deviation 46.4 fL (36.4-46.3); Red Blood Count 4.55 M/uL (4.7-6.1); White Blood Count 6.28 K/uL (4.8-10.8)
[2021-09-01 18:57] LABS: Partial Thromboplastin Ratio 1.1; Partial Thromboplastin Time 29.3 Seconds (21.0-31.0)
[2021-09-01 19:03] LABS: Alanine Aminotransferase 11 U/L (12-78); Albumin Level 3.5 gm/dl (3.4-5.0); Aspartate Aminotransferase 24 U/L (15-37); Blood Urea Nitrogen 16 mg/dl (7-18); Calcium 9.9 mg/dl (8.5-10.1); Carbon Dioxide 29 mmol/L (21-32); Chloride 105 mmol/L (98-107); Creatinine Clr Calc Pharmacy 77.5 ml/min; Est GFR (Non-African American) 69.9 ml/min; Glucose 98 mg/dl (70-99); Potassium 4.2 mmol/L (3.5-5.1); Sodium 136 mmol/L (136-145)
[2021-09-01 19:08] LABS: Albumin Globulin Ratio 0.9 (0.9-2); Alkaline Phosphatase 79 U/L (45-117); Bilirubin,Total 0.5 mg/dl (0.2-1); Globulin 3.8 gm/dl (2.5-4.0); Total Protein 7.3 gm/dl (6.4-8.2); Troponin I < 0.015 ng/ml (0-0.045)
--- NOTE | 2021-09-01 19:56 | Emergency Department Note ---
History of Present Illness General Chief complaint: Chest Pain Stated complaint: AFIB Time Seen by Provider: 09/01/21 18:43 Source: patient and family Mode of arrival: ambulatory Limitations: no limitations History of Present Illness Provider complaint: abnormal EKG in office This is a 76-year-old male who presents emergency department after being found to have an abnormal EKG in his PCPs office. Patient states he went to see physician membership assistant in his PCPs office as he has had increased fatigue, shortness of breath, and felt a sense of pressure in his neck and upper chest. Patient denies any sense of palpitations, no recent cough or cold symptoms. Patient does have a history of prior atrial flutter and underwent ablation in 2013. Patient states he has not had to follow with cardiology routinely since that time as he has not any problems. Patient is chronically anticoagulated due to history of PEs. Patient and at bedside state other than recent changes in his Sinemet dosing, there have been no other medication changes. Patient states he is very sensitive to blood pressure medications as they have dropped his blood pressure too far and he has passed out previously. Patient denies any current chest pain. Pt seen during a time of high acuity and national emergency pandemic while wearing PPE. Home Medications Medication Instructions Recorded Confirmed Type clobetasol-emollient 0.05 % 1 applic TOPICAL DAILY 05/09/19 09/01/21 History topical foam sertraline 50 mg tablet (Zoloft) 50 mg PO QAM 05/09/19 09/01/21 History Cialis 20 mg tablet (tadalafil) 20 mg PO .COMPLEX PRN #10 tab NS 06/15/20 09/01/21 Rx donepezil 10 mg tablet (Aricept) 10 mg PO DAILY 07/10/20 09/01/21 History valacyclovir 1 gram tablet 1,000 mg PO DAILY PRN #90 tab 11/05/20 09/01/21 Rx celecoxib 200 mg capsule 200 mg PO DAILY #90 cap 01/11/21 09/01/21 Rx rasagiline 1 mg tablet (Azilect) 1 mg PO DAILY 02/22/21 09/01/21 History carbidopa 25 mg-levodopa 100 mg 1.5 tab PO 07,10,13,16,19 tab 03/30/21 09/01/21 History tablet (Sinemet) apixaban 5 mg tablet (Eliquis) 5 mg PO BID #180 tab 04/27/21 09/01/21 Rx amoxicillin 500 mg capsule 2,000 mg PO DIRECTED PRN 09/01/21 09/01/21 History gabapentin 100 mg capsule 100 mg PO BID 09/01/21 09/01/21 History ketoconazole 2 % shampoo 1 applic TOPICAL QAM 09/01/21 09/01/21 History fgnqkaxx-ifh-qopcf acid 0.4 1 tab PO DAILY 09/01/21 09/01/21 History mg-lycopene 300 mcg-lutein 250 mcg tablet (Centrum Silver) Allergies Allergy/AdvReac Type Severity Reaction Status Date / Time dronedarone [From Multaq] Allergy Severe SHORT OF Verified 09/01/21 20:00 BREATH latex AdvReac Mild itching Verified 09/01/21 20:00 Past Med/Surg History Medical History (Updated 09/02/21 @ 01:31 by Polly Jones, ) 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 Anxiety Arrhythmia 2012 A-FLUTTER- CARDIOVERSION- WAS UNSUCESSFUL- THEN ABLATION Rivers's palsy BPH (benign prostatic hyperplasia) Cervical spondylosis Deep vein thrombosis (DVT) of lower extremity Depression Diverticulosis Dyscalculia Folliculitis decalvans GERD (gastroesophageal reflux disease) [place] filter in place Hearing deficit RIGHT EAR Ischial bursitis Lumbar spondylosis Neurogenic claudication Neuropathy Osteoarthritis Pulmonary embolism X2 Spinal stenosis Spinal stenosis Tubular adenoma of colon Vascular claudication Surgical History History of cardiac radiofrequency ablation (RFA) History of colonoscopy History of nasal surgery History of right cataract surgery History of tonsillectomy History of tooth extraction History of total knee replacement Hx of knee surgery Family History Mother Hearing loss Father Hearing loss Other Cancer Family history of bleeding disorder No family history of adverse response to anesthesia Social History Smoking Status: Never smoker Second Hand Exposure: No; Hx Alcohol Use: No Hx Substance Use: No Preferred Language: Uzbek Communication Ability: Effective Beliefs That Will Affect Care: None Current Living Situation: Spouse Feels Safe at Home: Yes Seatbelt Use: always Assistive Devices: Glasses Review of Systems A total of 10 systems reviewed and were otherwise negative All systems reviewed & are unremarkable except as noted in HPI & below Physical Exam Vital Signs Vital Signs - 24 hr 09/01/21 18:18 09/01/21 19:56 09/01/21 20:00 Temperature 36.4 C L Temperature Source Temporal Artery Scan Pulse Rate 108 H 83 78 Pulse Rate from SpO2 Sensor Respiratory Rate 18 26 H 25 H Respiratory Effort / Characteristics Non-Labored Respiratory Depth Normal Respiratory Pattern Regular Blood Pressure 155/83 H 186/107 H Blood Pressure Mean 107 133 Pulse Oximetry 97 92 92 Oxygen Delivery Method Room Air Sepsis Recent Fever Within 48 Hours No Sepsis New/Unexplained Change in Mental Status No Sepsis Action Taken by Nursing No Action Required 09/01/21 20:30 Temperature Temperature Source Pulse Rate 85 Pulse Rate from SpO2 Sensor 77 Respiratory Rate 23 Respiratory Effort / Characteristics Respiratory Depth Respiratory Pattern Blood Pressure Blood Pressure Mean Pulse Oximetry 97 Oxygen Delivery Method Sepsis Recent Fever Within 48 Hours Sepsis New/Unexplained Change in Mental Status Sepsis Action Taken by Nursing GENERAL: alert, well appearing, well nourished, no distress, non-toxic, [place] EYE EXAM: normal conjunctiva, PERRL and EOM's grossly intact OROPHARYNX: no exudate, no erythema, lips, buccal mucosa, and tongue normal and mucous membranes are moist NECK: supple, no nuchal rigidity, no adenopathy, non-tender LUNGS: Clear to auscultation. Normal chest wall mechanics, no w/r/r HEART: no murmurs, S1 normal and S2 normal ABDOMEN: abdomen soft, non-tender, normo-active bowel sounds, no masses, no rebound or guarding. BACK: Back is symmetrical on inspection and there is no deformity, no midline tenderness, no CVA tenderness. SKIN: no rashes and no bruising UPPER EXTREMITIES: upper extremities are grossly normal. FROM, nml pulses b/l. LOWER EXTREMITIES: No pitting edema. FROM, nml pulses b/l. NEURO EXAM: Normal sensorium, cranial nerves II-XII grossly intact, normal speech, no gross weakness of arms, no gross weakness of legs. Gross sensation intact. Resting tremors noted consistent with Parkinson's. Course Course 1950: Discussed with Dr. Fung. Would hold off on any rate controlling agents at this time unless patient has sustained tachycardia. Administered Medications Apixaban (Apixaban 5 Mg Tablet) 5 mg PO BID VANE Stop: 10/01/21 22:05 Last Admin: 09/01/21 22:41 Dose: Not Given Documented by: [id number] Gabapentin (Gabapentin 100 Mg Cap) 100 mg PO BID VANE Stop: 10/01/21 22:05 Last Admin: 09/01/21 22:41 Dose: Not Given Documented by: [id number] Medical Decision Making Differential Diagnosis Differential diagnosis includes etiologies such as premature contractions, electrolyte abnormality, cardiac dysrhythmia, thyroid dysfunction, pulmonary embolism, infection, gastrointestinal, as well as others were entertained. Medical Records Attestation: I reviewed the patient's medical records. Home Medications Current Medication List: was personally reviewed by me Laboratory Data Attestation: I reviewed the patient's lab results. Result diagrams: 09/01/21 18:29 09/01/21 18:29 Lab Results 09/01/21 09/01/21 09/01/21 Range/Units 18:29 18:29 18:29 WBC 6.28 (4.8-10.8) K/uL RBC 4.55 L (4.7-6.1) M/uL Hgb 13.4 L (14.0-18.0) g/dL Hct 40.6 L (42-52) % MCV 89.2 (80-100) fL MCH 29.5 (25-34) pg MCHC 33.0 (32-36) g/dL RDW Std Deviation 46.4 H (36.4-46.3) fL RDW Coeff of Gerard 14.3 (11.5-14.5) % Plt Count 206 (130-400) K/uL MPV 9.8 (7.4-10.4) fL Immature Gran % (Auto) 1.3 % Neut % (Auto) 61.3 % Lymph % (Auto) 26.1 % [place] % (Auto) 8.9 % Eos % (Auto) 1.9 % Baso % (Auto) 0.5 % Neut # (Auto) 3.85 (1.4-6.5) K/uL Lymph # (Auto) 1.64 (1.2-3.4) K/uL [place] # (Auto) 0.56 (0.11-0.59) K/uL Eos # (Auto) 0.12 (0-0.5) K/uL Baso # (Auto) 0.03 (0-0.2) K/uL Immature Gran # (Auto) 0.08 H (0.00-0.02) K/uL PT 10.0 (9.0-12.0) Seconds INR 1.0 (0.9-1.1) APTT 29.3 (21.0-31.0) Seconds PTT Ratio 1.1 Sodium 136 (136-145) mmol/L Potassium 4.2 (3.5-5.1) mmol/L Chloride 105 (98-107) mmol/L Carbon Dioxide 29 (21-32) mmol/L Anion Gap 2.0 L (3-11) BUN 16 (7-18) mg/dl Creatinine 1.04 (0.6-1.4) mg/dl Est Cr Clr Drug Dosing 77.5 ml/min Est GFR ( Amer) 81.0 ml/min Est GFR (Non-Af Amer) 69.9 ml/min BUN/Creatinine Ratio 15.0 (10-20) Glucose 98 (70-99) mg/dl Calcium 9.9 (8.5-10.1) mg/dl Magnesium 2.1 (1.8-2.4) mg/dl Total Bilirubin 0.5 (0.2-1) mg/dl AST 24 (15-37) U/L ALT 11 L (12-78) U/L Alkaline Phosphatase 79 (45-117) U/L Troponin I < 0.015 (0-0.045) ng/ml Total Protein 7.3 (6.4-8.2) gm/dl Albumin 3.5 (3.4-5.0) gm/dl Globulin 3.8 (2.5-4.0) gm/dl Albumin/Globulin Ratio 0.9 (0.9-2) TSH 2.450 (0.300-4.500) uIu/ml COVID-19 Eval Order SARS-CoV-2 (PCR) (Negative) 09/01/21 09/01/21 Range/Units 18:39 18:39 WBC (4.8-10.8) K/uL RBC (4.7-6.1) M/uL Hgb (14.0-18.0) g/dL Hct (42-52) % MCV (80-100) fL MCH (25-34) pg MCHC (32-36) g/dL RDW Std Deviation (36.4-46.3) fL RDW Coeff of Gerard (11.5-14.5) % Plt Count (130-400) K/uL MPV (7.4-10.4) fL Immature Gran % (Auto) % Neut % (Auto) % Lymph % (Auto) % [place] % (Auto) % Eos % (Auto) % Baso % (Auto) % Neut # (Auto) (1.4-6.5) K/uL Lymph # (Auto) (1.2-3.4) K/uL [place] # (Auto) (0.11-0.59) K/uL Eos # (Auto) (0-0.5) K/uL Baso # (Auto) (0-0.2) K/uL Immature Gran # (Auto) (0.00-0.02) K/uL PT (9.0-12.0) Seconds INR (0.9-1.1) APTT (21.0-31.0) Seconds PTT Ratio Sodium (136-145) mmol/L Potassium (3.5-5.1) mmol/L Chloride (98-107) mmol/L Carbon Dioxide (21-32) mmol/L Anion Gap (3-11) BUN (7-18) mg/dl Creatinine (0.6-1.4) mg/dl Est Cr Clr Drug Dosing ml/min Est GFR ( Amer) ml/min Est GFR (Non-Af Amer) ml/min BUN/Creatinine Ratio (10-20) Glucose (70-99) mg/dl Calcium (8.5-10.1) mg/dl Magnesium (1.8-2.4) mg/dl Total Bilirubin (0.2-1) mg/dl AST (15-37) U/L ALT (12-78) U/L Alkaline Phosphatase (45-117) U/L Troponin I (0-0.045) ng/ml Total Protein (6.4-8.2) gm/dl Albumin (3.4-5.0) gm/dl Globulin (2.5-4.0) gm/dl Albumin/Globulin Ratio (0.9-2) TSH (0.300-4.500) uIu/ml COVID-19 Eval Order Covid19 at [facility] SARS-CoV-2 (PCR) NEGATIVE (Negative) Imaging Data Radiologist's Impression: Chest X-Ray 09/01/21 18:24 XR chest 1V portable CLINICAL HISTORY: Atypical chest pain TECHNIQUE: Single frontal radiograph of the chest was obtained. Comparison: None available at the time of this dictation. FINDINGS: No lines and tubes are seen. The cardiomediastinal silhouette is normal. The lungs are clear. No evidence of pleural effusion or pneumothorax. IMPRESSION: No acute chest disease. ACT 112: Negative or not required by law. Electronically signed by: Benito Frausto M.D. 09/01/2021 6:43 PM ECG Data Attestation: I personally reviewed and interpreted this ECG as follows: Indication: + palpitations Rate (beats per minute): 70 Rhythm: + atrial flutter ECG Intervals/blocks: + Normal QRS and + Normal QT ECG [place]: + Normal ECG ST segments: + Nonspecific ST abnormalities MDM Narrative This is a 76-year-old male who presents due to concern for increased fatigue, slight dyspnea with exertion, and a sense of pressure in the neck and superior chest after being seen and evaluated at the PCPs office and found to be in atrial flutter. Patient does have prior history of dysrhythmia and underwent previous ablation. Patient is chronically anticoagulated already due to history of PEs. Patient was hemodynamically stable and relatively asymptomatic while at rest. Patient denies any signs of chest pain, shortness of breath at rest, or palpitations. Patient's first EKG appeared to be a flutter, however subsequent evaluation of telemetry patient appears to be changing from atrial fibrillation to a flutter intermittently. I did discuss the case with on-call cardiology due to patient's prior history. Given patient's other ongoing medical problems, and prior significant reactions to medications, will defer attempted cardioversion down here following additional evaluation by cardiology. Patient would be high risk ASA classification for moderate sedation in addition. Patient's labs and chest x-ray reassuring. Patient mostly rate controlled in the 70s and 80s although would occasionally go to the low 100s but then return to the lower levels. I do not suspect occult infectious etiology. Discussed all results with patient and family at bedside, they verbalized understanding and were in agreement. An order was placed for continuous cardiac monitoring. The monitor shows a rate of _76_ with _normal sinus__ rhythm. Impression & Plan Dysrhythmia, Fatigue, Atrial flutter Discharge Plan Visit Data Chief Complaint: Chest Pain Stated Complaint: AFIB ED Provider: Polly Jones Discharge Problem: Dysrhythmia, Fatigue, Atrial flutter Discharge Problem: Dysrhythmia Qualifiers: Arrhythmia type: atrial flutter Atrial flutter type: unspecified Qualified Code(s): I48.92 - Unspecified atrial flutter Fatigue Qualifiers: Fatigue type: unspecified Qualified Code(s): R53.83 - Other fatigue Atrial flutter Qualifiers: Atrial flutter type: unspecified Qualified Code(s): I48.92 - Unspecified atrial flutter
[2021-09-01 20:18] LABS: Magnesium 2.1 mg/dl (1.8-2.4)
--- NOTE | 2021-09-01 20:52 | History & Physical Report ---
Date of Service September 01, 2021 Assessment & Plan (1) Dyspnea on exertion: Plan: 76 yo M with PMH aflutter s/p ablation, acoustic neuroma status post resection, peripheral neuropathy who was sent to the emergency department for evaluation of dyspnea on exertion with an abnormal EKG and admitted for monitoring of new onset A. fib. Dyspnea on exertion Likely secondary to A. fib as noted on EKG and telemetry monitoring in the emergency department Possible new congestive heart failure however no symptoms of fluid overload on exam (no pulmonary crackles, moist mucous membranes, no oxygen requirement) mild ankle swelling likely due to use of amlodipine. TTE ordered Troponins negative x2. May require outpatient stress test if dyspnea persists beyond treatment of A. fib Cardiology consulted given history of atrial flutter with ablation and sensitivity to hypertension medications Chronically anticoagulated due to history of PEs, currently rate controlled without intervention Chronic PE Continue Eliquis five twice daily Hemoglobin 13.4, at baseline Parkinson's disease Continue carbidopa levodopa, rasagiline, donepezil per home doses Depression Continue sertraline DVT ppx: on eliquis FEN/GI: heart healthy Bowel regimen: prn Code Status: Full Code Dispo: Med/Tele (2) Parkinson disease: (3) Hypertension: (4) Anemia: (5) Atrial fibrillation: (6) Polyneuropathy: (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 States that he's felt a pressure/swelling- like sensation behind his sternum up into his throat when walking or exerting himself. no pain with inspiration. no dizziness or lightheadedness. Was evaluated by PCP in office today and found to have an abnormal EKG, advised to be evaluated in the ER. No peripheral swelling. no recent medication changes. ER course significant for EKG finding atrial fibrillation. Allergies Allergy/AdvReac Type Severity Reaction Status Date / Time dronedarone [From Multaq] Allergy Severe SHORT OF Verified 09/01/21 20:00 BREATH latex AdvReac Mild itching Verified 09/01/21 20:00 Home Medications Medication Instructions Recorded Confirmed Type clobetasol-emollient 0.05 % 1 applic TOPICAL DAILY 05/09/19 09/01/21 History topical foam sertraline 50 mg tablet (Zoloft) 50 mg PO QAM 05/09/19 09/01/21 History Cialis 20 mg tablet (tadalafil) 20 mg PO .COMPLEX PRN #10 tab NS 06/15/20 09/01/21 Rx donepezil 10 mg tablet (Aricept) 10 mg PO DAILY 07/10/20 09/01/21 History valacyclovir 1 gram tablet 1,000 mg PO DAILY PRN #90 tab 11/05/20 09/01/21 Rx celecoxib 200 mg capsule 200 mg PO DAILY #90 cap 01/11/21 09/01/21 Rx rasagiline 1 mg tablet (Azilect) 1 mg PO DAILY 02/22/21 09/01/21 History carbidopa 25 mg-levodopa 100 mg 1.5 tab PO 07,,,16,19 tab 03/30/21 09/01/21 History tablet (Sinemet) apixaban 5 mg tablet (Eliquis) 5 mg PO BID #180 tab 04/27/21 09/01/21 Rx amoxicillin 500 mg capsule 2,000 mg PO DIRECTED PRN 09/01/21 09/01/21 History gabapentin 100 mg capsule 100 mg PO BID 09/01/21 09/01/21 History ketoconazole 2 % shampoo 1 applic TOPICAL QAM 09/01/21 09/01/21 History zfeyfwyr-yva-alsnb acid 0.4 1 tab PO DAILY 09/01/21 09/01/21 History mg-lycopene 300 mcg-lutein 250 mcg tablet (Centrum Silver) Past Med/Surg History Medical History (Updated 09/02/21 @ 03:54 by Renita Norton MD) 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 Anxiety Arrhythmia 2012 A-FLUTTER- CARDIOVERSION- WAS UNSUCESSFUL- THEN ABLATION Rivers's palsy BPH (benign prostatic hyperplasia) Cervical spondylosis Deep vein thrombosis (DVT) of lower extremity Depression Diverticulosis Dyscalculia Folliculitis decalvans GERD (gastroesophageal reflux disease) [place] filter in place Hearing deficit RIGHT EAR Ischial bursitis Lumbar spondylosis Neurogenic claudication Neuropathy Osteoarthritis Pulmonary embolism X2 Spinal stenosis Spinal stenosis Tubular adenoma of colon Vascular claudication Surgical History History of cardiac radiofrequency ablation (RFA) History of colonoscopy History of nasal surgery History of right cataract surgery History of tonsillectomy History of tooth extraction History of total knee replacement Hx of knee surgery Family History Mother Hearing loss Father Hearing loss Other Cancer Family history of bleeding disorder No family history of adverse response to anesthesia Social History Smoking Status: Never smoker Second Hand Exposure: No; Hx Alcohol Use: No Hx Substance Use: No Preferred Language: Liberian Communication Ability: Effective Beliefs That Will Affect Care: None Current Living Situation: Spouse Feels Safe at Home: Yes Seatbelt Use: always Assistive Devices: Glasses Review of Systems Constitutional: no fever, no chills, no body aches and no fatigue Respiratory: no cough and no dyspnea Cardiovascular: + dyspnea on exertion; no chest pain, no chest pain with activity, no dyspnea, no dyspnea at rest, no palpitations, no lightheadedness, no syncope and no edema Gastrointestinal: no abdominal pain, no nausea, no vomiting, no constipation and no diarrhea/loose stools Neurologic: no tingling, no numbness, no dizziness and no confusion Physical Exam Physical Exam: Constitutional: in no apparent distress, sitting comfortably in bed. Eyes: EOMI, pupils equal and reactive bilaterally, no scleral icterus Cardiac: regular rate, irregularly irregular rhythm, no murmurs, gallops or rubs. Normal S1, S2 Pulm: CTA BL, no wheezes, rhonchi, crackles or rubs, moving air well throughout both lungs Abd: soft, nontender, nondistended, normal bowel sounds, no rebound or guarding Extremities: 2+ peripheral pulses, 1+ pitting edema to ankles bilaterally Neuro: no focal deficits, moving all 4 limbs, A&Ox3, resting tremor in both arms Results & Data Results & Data ([facility]) Vital Signs (Past 12 Hours) Vital Signs Temp Pulse Resp BP Pulse Ox 09/01/21 20:00 78 25 H 186/107 H 92 09/01/21 19:56 83 26 H 92 09/01/21 18:18 36.4 C L 108 H 18 155/83 H 97 Laboratory Results Laboratory Results WBC 6.28 K/uL (4.8-10.8) 09/01/21 18: RBC 4.55 M/uL (4.7-6.1) L 09/01/21 18:29 Hgb 13.4 g/dL (14.0-18.0) L 09/01/21 18:29 Hct 40.6 % (42-52) L 09/01/21 18: MCV 89.2 fL (80-100) 09/01/21 18: MCH 29.5 pg (25-34) 09/01/21 18: MCHC 33.0 g/dL (32-36) 09/01/21 18: RDW Std Deviation 46.4 fL (36.4-46.3) H 09/01/21 18: RDW Coeff of Gerard 14.3 % (11.5-14.5) 09/01/21 18: Plt Count 206 K/uL (130-400) 09/01/21 18: MPV 9.8 fL (7.4-10.4) 09/01/21 18: Immature Gran % (Auto) 1.3 % 09/01/21 18: Neut % (Auto) 61.3 % 09/01/21 18:29 Lymph % (Auto) 26.1 % 09/01/21 18:29 [place] % (Auto) 8.9 % 09/01/21 18:29 Eos % (Auto) 1.9 % 09/01/21 18: Baso % (Auto) 0.5 % 09/01/21 18: Neut # (Auto) 3.85 K/uL (1.4-6.5) 09/01/21 18: Lymph # (Auto) 1.64 K/uL (1.2-3.4) 09/01/21 18: [place] # (Auto) 0.56 K/uL (0.11-0.59) 09/01/21 18:29 Eos # (Auto) 0.12 K/uL (0-0.5) 09/01/21 18: Baso # (Auto) 0.03 K/uL (0-0.2) 09/01/21 18: Immature Gran # (Auto) 0.08 K/uL (0.00-0.02) H 09/01/21 18: PT 10.0 Seconds (9.0-12.0) 09/01/21 18: INR 1.0 (0.9-1.1) 09/01/21 18: APTT 29.3 Seconds (21.0-31.0) 09/01/21 18: PTT Ratio 1.1 09/01/21 18: Sodium 136 mmol/L (136-145) 09/01/21 18: Potassium 4.2 mmol/L (3.5-5.1) 09/01/21 18: Chloride 105 mmol/L (98-107) 09/01/21 18: Carbon Dioxide 29 mmol/L (21-32) 09/01/21 18: Anion Gap 2.0 (3-11) L 09/01/21 18: BUN 16 mg/dl (7-18) 09/01/21 18: Creatinine 1.04 mg/dl (0.6-1.4) 09/01/21 18: Est Cr Clr Drug Dosing 77.5 ml/min 09/01/21 18:29 Est GFR ( Amer) 81.0 ml/min 09/01/21 18: Est GFR (Non-Af Amer) 69.9 ml/min 09/01/21 18:29 BUN/Creatinine Ratio 15.0 (10-20) 09/01/21 18: Glucose 98 mg/dl (70-99) 09/01/21 18: Calcium 9.9 mg/dl (8.5-10.1) 09/01/21 18: Magnesium 2.1 mg/dl (1.8-2.4) 09/01/21 18: Total Bilirubin 0.5 mg/dl (0.2-1) 09/01/21 18: AST 24 U/L (15-37) 09/01/21 18:29 ALT 11 U/L (12-78) L 09/01/21 18:29 Alkaline Phosphatase 79 U/L (45-117) 09/01/21 18: Troponin I < 0.015 ng/ml (0-0.045) 09/02/21 02:24 Total Protein 7.3 gm/dl (6.4-8.2) 09/01/21 18:29 Albumin 3.5 gm/dl (3.4-5.0) 09/01/21 18:29 Globulin 3.8 gm/dl (2.5-4.0) 09/01/21 18:29 Albumin/Globulin Ratio 0.9 (0.9-2) 09/01/21 18:29 TSH 2.450 uIu/ml (0.300-4.500) 09/01/21 18:29 COVID-19 Eval Order Covid19 at [facility] 09/01/21 18:39 SARS-CoV-2 (PCR) NEGATIVE (Negative) 09/01/21 18:39 Impressions Chest X-Ray 09/01/21 18:24 XR chest 1V portable CLINICAL HISTORY: Atypical chest pain TECHNIQUE: Single frontal radiograph of the chest was obtained. Comparison: None available at the time of this dictation. FINDINGS: No lines and tubes are seen. The cardiomediastinal silhouette is normal. The lungs are clear. No evidence of pleural effusion or pneumothorax. IMPRESSION: No acute chest disease. ACT 112: Negative or not required by law. Electronically signed by: Benito Frausto M.D. 09/01/2021 6:43 PM Code Status & VTE Plan VTE Prophylaxis Plan VTE Prophylaxis will be ordered: Yes Supervising Physician Co-Signing Physician Notes Patient seen and examined, chart reviewed, case discussed with Dr. Norton and aI agree with her assessment and plan as zuleima Resident Activity Tracking Resident Involvement: Resident Care Provided Care Provided: Adult Hospital Medicine
[2021-09-01] MEDS ORDERED: ONDANSETRON INJ 2 MG/ML 2 ML VIAL IV PRN (22:06)
[2021-09-01] MEDS ORDERED: POLYETHYLENE (MIRALAX) 17 GM PACK PO PRN (22:06)
[2021-09-01] MEDS ORDERED: NITROGLYCERIN SL 0.4 MG/TAB TAB SL PRN (22:06)
[2021-09-01] MEDS ORDERED: ACETAMINOPHEN 325 MG TAB PO PRN (22:06)
[2021-09-01] MEDS: APIXABAN 5 MG TABLET PO SCH (22:41)
[2021-09-01] MEDS: GABAPENTIN 100 MG CAP PO SCH (22:41)
--- NOTE | 2021-09-02 03:12 | Billing Data ---
Date of Service September 01, 2021 Coding Level of Care Code INT OBSERVATION CARE 50M LVL 2
[2021-09-02] MEDS: CARBIDOPA/LEVODOPA 25/100MG TAB PO SCH ×5 (06:36→18:23)
--- NOTE | 2021-09-02 07:51 | XCELERA ---
[id number]
[2021-09-02] MEDS ORDERED: AZILECT~ORDER AWAITING ACTION SCH (08:00)
--- NOTE | 2021-09-02 08:56 | Electrocardiogram Report ---
Test Reason : Blood Pressure : / mmHG Vent. Rate : 071 BPM Atrial Rate : 264 BPM P-R Int : 000 ms QRS Dur : 094 ms QT Int : 386 ms P-R-T Axes : 000 007 044 degrees QTc Int : 419 ms Atrial flutter with variable A-V block Abnormal ECG When compared with ECG of 26-JUN-2017 16:29, Atrial flutter has replaced Sinus rhythm Confirmed by Magdiel Quick ([id number]) on 09/02/2021 8:56:35 AM Referred By: REFERRED SELF Confirmed By:Magdiel Quick
--- NOTE | 2021-09-02 08:57 | Electrocardiogram Report ---
Test Reason : Blood Pressure : / mmHG Vent. Rate : 070 BPM Atrial Rate : 062 BPM P-R Int : 000 ms QRS Dur : 094 ms QT Int : 386 ms P-R-T Axes : 000 -01 038 degrees QTc Int : 416 ms Atrial flutter Abnormal ECG When compared with ECG of 01-SEP-2021 18:25, No significant change Confirmed by Magdiel Quick ([id number]) on 09/02/2021 8:57:19 AM Referred By: REFERRED SELF Confirmed By:Magdiel Quick
[2021-09-02] MEDS: SERTRALINE HCL 50 MG TABLET PO SCH (09:33)
[2021-09-02] MEDS: APIXABAN 5 MG TABLET PO SCH ×2 (09:33→21:37)
[2021-09-02] MEDS: GABAPENTIN 100 MG CAP PO SCH ×2 (09:33→21:37)
[2021-09-02] MEDS: DONEPEZIL HCL 10 MG TAB PO SCH (09:33)
[2021-09-02] MEDS: AZILECT PO SCH (10:31)
[2021-09-02] MEDS ORDERED: PNEUMOCOCCAL POLYSACCHARIDES 25 MCG/0.5 ML VIAL/SYR IM ONE (11:40)
--- NOTE | 2021-09-02 14:02 | Hospitalist Progress Note ---
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 In the ED, EKGs showed atrial flutter. Dyspnea on exertion - DDx includes atrial arrhythmia vs congestive heart failure vs angina - ECHO demonstrates EF 55-60%, LV wall motion normal, mild concentric LVH, mild aortic stenosis and regurgitation, moderate mitral regurgitation, mild to moderate tricuspid regurgitation, mild dilation of RA and LV, and RV systolic pressure elevation at 30-40 mmHg - troponins negative x2 - no signs of fluid overload - manage A flutter as below. Less likely contributing since HR controlled - cardiology consult stress test planned for tomorrow Atrial flutter - past h/o ablation for A flutter and h/o A fib - chronically anticoagulated due to history of PEs - currently rate controlled. Not on any rate control medication - cardiology consult Chronic PE - continue Eliquis five twice daily - hemoglobin 13.4, at baseline Parkinson's disease - continue carbidopa levodopa, rasagiline, donepezil per home doses Depression - continue sertraline Polyeuropathy - continue gabapentin DVT ppx: on eliquis FEN/GI: heart healthy Bowel regimen: prn Code Status: Full Code Dispo: Med/Tele (2) Parkinson disease: (3) Hypertension: (4) Anemia: (5) Atrial fibrillation: (6) Polyneuropathy: (7) correction current use of anticoagulant therapy: (8) Atrial flutter: Admission and Anticipated Discharge Date Admission Date: September 01, 2021 Supervising Physician Co-Signing Physician Notes Medical Student Supervision Note: I was personally present during medical student patient encounter and in dependently interviewed and examined the patient and verified the hairston history and physical, reviewed labs and image studies, discussed the case with Salma Garcia and agree with the findings and care plan. 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 He has had dyspnea on exertion for a few months. He's also had 3-4 episodes of momentary substernal pressure radiating to his neck as well as frequent diap horesis in the evenings in the past 2 weeks. He was evaluated by PCP in the office today and found to have a low oxygen saturation of 91% with walking as well as an abnormal EKG and was advised to be evaluated in the ER. ER course significant for EKGs finding atrial flutter. He currently feels stable. Review of Systems Constitutional: + fatigue; no fever, no chills and no body aches Respiratory: no pleuritic chest pain Cardiovascular: + dyspnea on exertion; no chest pain, no chest pain with activity, no dyspnea at rest, no palpitations, no lightheadedness, no syncope and no edema Gastrointestinal: no abdominal pain, no nausea, no vomiting, no constipation and no diarrhea/loose stools Neurologic: no tingling, no numbness, no dizziness and no confusion Endocrine: + diaphoresis Physical Exam Constitutional: well developed and well nourished; no acute distress Respiratory: normal respiratory effort, lungs clear to auscultation Cardiovascular: RRR, no murmur, no edema Vessels: radial pulses present (regular) Gastrointestinal (Abdomen): Inspection/Auscultation: normal bowel sounds Percussion/Palpation: abdomen soft; no guarding Neurologic: Motor/Sensory: + tremor (resting tremor bilateral upper extremities) Cranial Nerves: PERRL, normal accommodation, EOM intact bilaterally, tongue midline, able to elevate shoulders bilaterally and no nystagmus; + abnormal facial strength (right facial droop at baseline) Psychiatric: A+Ox3, euthymic affect Results & Data Results & Data ([facility]) Vital Signs (Past 12 Hours) Vital Signs Temp Pulse Pulse Resp BP BP Pulse Ox 09/02/21 11:22 65 09/02/21 11:00 36.6 C 58 L 16 158/80 H 99 09/02/21 08:00 68 18 146/85 H 98 09/02/21 05:00 73 23 140/89 92 09/02/21 03:30 76 22 151/99 H 98 09/02/21 03:00 67 18 150/97 H 97 09/02/21 02:30 81 22 99 09/02/21 02:00 67 19 145/101 H 97 Laboratory Results 09/02/21 09/02/21 09/01/21 Range/Units 11:53 02:24 18:39 WBC (4.8-10.8) K/uL RBC (4.7-6.1) M/uL Hgb (14.0-18.0) g/dL Hct (42-52) % MCV (80-100) fL MCH (25-34) pg MCHC (32-36) g/dL RDW Std Deviation (36.4-46.3) fL RDW Coeff of Gerard (11.5-14.5) % Plt Count (130-400) K/uL MPV (7.4-10.4) fL Immature Gran % (Auto) % Neut % (Auto) % Lymph % (Auto) % [place] % (Auto) % Eos % (Auto) % Baso % (Auto) % Neut # (Auto) (1.4-6.5) K/uL Lymph # (Auto) (1.2-3.4) K/uL [place] # (Auto) (0.11-0.59) K/uL Eos # (Auto) (0-0.5) K/uL Baso # (Auto) (0-0.2) K/uL Immature Gran # (Auto) (0.00-0.02) K/uL PT (9.0-12.0) Seconds INR (0.9-1.1) APTT (21.0-31.0) Seconds PTT Ratio Sodium (136-145) mmol/L Potassium (3.5-5.1) mmol/L Chloride (98-107) mmol/L Carbon Dioxide (21-32) mmol/L Anion Gap (3-11) BUN (7-18) mg/dl Creatinine (0.6-1.4) mg/dl Est Cr Clr Drug Dosing ml/min Est GFR ( Amer) ml/min Est GFR (Non-Af Amer) ml/min BUN/Creatinine Ratio (10-20) Glucose (70-99) mg/dl POC Glucose 86 (70-99) mg/dl Calcium (8.5-10.1) mg/dl Magnesium (1.8-2.4) mg/dl Total Bilirubin (0.2-1) mg/dl AST (15-37) U/L ALT (12-78) U/L Alkaline Phosphatase (45-117) U/L Troponin I < 0.015 (0-0.045) ng/ml Total Protein (6.4-8.2) gm/dl Albumin (3.4-5.0) gm/dl Globulin (2.5-4.0) gm/dl Albumin/Globulin Ratio (0.9-2) TSH (0.300-4.500) uIu/ml COVID-19 Eval Order SARS-CoV-2 (PCR) NEGATIVE (Negative) 09/01/21 09/01/21 09/01/21 Range/Units 18:39 18:29 18:29 WBC (4.8-10.8) K/uL RBC (4.7-6.1) M/uL Hgb (14.0-18.0) g/dL Hct (42-52) % MCV (80-100) fL MCH (25-34) pg MCHC (32-36) g/dL RDW Std Deviation (36.4-46.3) fL RDW Coeff of Gerard (11.5-14.5) % Plt Count (130-400) K/uL MPV (7.4-10.4) fL Immature Gran % (Auto) % Neut % (Auto) % Lymph % (Auto) % [place] % (Auto) % Eos % (Auto) % Baso % (Auto) % Neut # (Auto) (1.4-6.5) K/uL Lymph # (Auto) (1.2-3.4) K/uL [place] # (Auto) (0.11-0.59) K/uL Eos # (Auto) (0-0.5) K/uL Baso # (Auto) (0-0.2) K/uL Immature Gran # (Auto) (0.00-0.02) K/uL PT 10.0 (9.0-12.0) Seconds INR 1.0 (0.9-1.1) APTT 29.3 (21.0-31.0) Seconds PTT Ratio 1.1 Sodium 136 (136-145) mmol/L Potassium 4.2 (3.5-5.1) mmol/L Chloride 105 (98-107) mmol/L Carbon Dioxide 29 (21-32) mmol/L Anion Gap 2.0 L (3-11) BUN 16 (7-18) mg/dl Creatinine 1.04 (0.6-1.4) mg/dl Est Cr Clr Drug Dosing 77.5 ml/min Est GFR ( Amer) 81.0 ml/min Est GFR (Non-Af Amer) 69.9 ml/min BUN/Creatinine Ratio 15.0 (10-20) Glucose 98 (70-99) mg/dl POC Glucose (70-99) mg/dl Calcium 9.9 (8.5-10.1) mg/dl Magnesium 2.1 (1.8-2.4) mg/dl Total Bilirubin 0.5 (0.2-1) mg/dl AST 24 (15-37) U/L ALT 11 L (12-78) U/L Alkaline Phosphatase 79 (45-117) U/L Troponin I < 0.015 (0-0.045) ng/ml Total Protein 7.3 (6.4-8.2) gm/dl Albumin 3.5 (3.4-5.0) gm/dl Globulin 3.8 (2.5-4.0) gm/dl Albumin/Globulin Ratio 0.9 (0.9-2) TSH 2.450 (0.300-4.500) uIu/ml COVID-19 Eval Order Covid19 at [facility] SARS-CoV-2 (PCR) (Negative) 09/01/21 Range/Units 18:29 WBC 6.28 (4.8-10.8) K/uL RBC 4.55 L (4.7-6.1) M/uL Hgb 13.4 L (14.0-18.0) g/dL Hct 40.6 L (42-52) % MCV 89.2 (80-100) fL MCH 29.5 (25-34) pg MCHC 33.0 (32-36) g/dL RDW Std Deviation 46.4 H (36.4-46.3) fL RDW Coeff of Gerard 14.3 (11.5-14.5) % Plt Count 206 (130-400) K/uL MPV 9.8 (7.4-10.4) fL Immature Gran % (Auto) 1.3 % Neut % (Auto) 61.3 % Lymph % (Auto) 26.1 % [place] % (Auto) 8.9 % Eos % (Auto) 1.9 % Baso % (Auto) 0.5 % Neut # (Auto) 3.85 (1.4-6.5) K/uL Lymph # (Auto) 1.64 (1.2-3.4) K/uL [place] # (Auto) 0.56 (0.11-0.59) K/uL Eos # (Auto) 0.12 (0-0.5) K/uL Baso # (Auto) 0.03 (0-0.2) K/uL Immature Gran # (Auto) 0.08 H (0.00-0.02) K/uL PT (9.0-12.0) Seconds INR (0.9-1.1) APTT (21.0-31.0) Seconds PTT Ratio Sodium (136-145) mmol/L Potassium (3.5-5.1) mmol/L Chloride (98-107) mmol/L Carbon Dioxide (21-32) mmol/L Anion Gap (3-11) BUN (7-18) mg/dl Creatinine (0.6-1.4) mg/dl Est Cr Clr Drug Dosing ml/min Est GFR ( Amer) ml/min Est GFR (Non-Af Amer) ml/min BUN/Creatinine Ratio (10-20) Glucose (70-99) mg/dl POC Glucose (70-99) mg/dl Calcium (8.5-10.1) mg/dl Magnesium (1.8-2.4) mg/dl Total Bilirubin (0.2-1) mg/dl AST (15-37) U/L ALT (12-78) U/L Alkaline Phosphatase (45-117) U/L Troponin I (0-0.045) ng/ml Total Protein (6.4-8.2) gm/dl Albumin (3.4-5.0) gm/dl Globulin (2.5-4.0) gm/dl Albumin/Globulin Ratio (0.9-2) TSH (0.300-4.500) uIu/ml COVID-19 Eval Order SARS-CoV-2 (PCR) (Negative) Diagnostic Findings CXR: No acute chest disease. ECHO (09/02/21): EF 55-60%, LV wall motion normal, mild concentric LVH, mild aortic stenosis and regurgitation, moderate mitral regurgitation, mild to moderate tricuspid regurgitation, mild dilation of RA and LV, RV systolic p ressure elevation at 30-40 mmHg. EKG (09/02/21): Atrial flutter. (1) Atrial flutter Atrial flutter type: unspecified Qualified Code(s): I48.92 - Unspecified atrial flutter
[2021-09-02 17:45] LABS: Lyme Ab IgG w/WB Rflx Negative (Negative); Lyme Ab IgM w/WB Rflx Negative (Negative)
--- NOTE | 2021-09-02 19:32 | Cardiology Consultation ---
Date of Consultation September 02, 2021 Assessment & Plan (1) Dyspnea on exertion: (2) Atrial flutter: (3) Hypertension: (4) Parkinson disease: (5) assisted current use of anticoagulant therapy: Etiology of dyspnea on exertion unclear, evaluation underway. Volume status appears appropriate, lung exam benign. Given history of progressive dyspnea, one episode of chest discomfort, and episodic inappropriate diaphoresis, he may be experiencing unrecognized tachydysrhythmia due to recurrent atrial flutter. At this point, his documented ventricular response to atrial flutter has been rate controlled and is not clearly related to his symptoms. Monitoring throughout the day was unrevealing since he remained in sinus rhythm. Would recommend obtaining MCOT monitor for 1 month after discharge in an attempt to correlate any of his various symptoms (dyspnea, chest discomfort, diaphoresi s) with dysrhythmia. If atrial flutter is identified, could consider amiodarone for rhythm control, given that his dysrhythmia is paroxysmal. Continue to monitor in the hospital overnight, will perform stress echocardiogram tomorrow to evaluate his hemodynamic and rhythm response to exercise and also to exclude myocardial ischemia as a potential cause for his chest discomfort/dyspnea. If his stress study is negative and monitor benign, likely he could be discharged home tomorrow with further work-up by cardiology as an outpatient. History of Present Illness Reason for Consultation: Atrial flutter Requesting Physician: Pily Song MD Attending Physician: Pily Song MD History of Present Illness 76-year-old man with Parkinson's disease, remote ablation for atrial flutter (2013), recurrent pulmonary emboli (on chronic anticoagulation with apixaban), hypertension, and polyneuropathy who had noted dyspnea on exertion in recent weeks and was found to have recurrent atrial flutter on ECG during a visit to his primary care physician, admitted on 09/01/2021. He notes that for years he has had inappropriate nocturnal diaphoresis of uncertain etiology, after a hiatus of many months this has recurred again in recent months. He also notes dyspnea on moderate activity which seems to be increasing. He does not have routine chest pain, but about a week ago he had a burning/pressing discomfort in his chest radiating to his anterior neck while he was performing physical activity (gathering branches). No orthopnea, PND, or ankle edema. No subjective palpitations, presyncope, or syncope. Does have occasional mechanical falls, none recently. He notes orthostatic lightheadedness at times, but he monitors his home blood pressure and is careful when he obtains a low reading (which correlates with the occurrence of lightheadedness). He has been comfortable at rest since admission. Initial ECG showed atrial flutter with controlled rate of 71 bpm. Early after his admission he reverted to sinus rhythm and telemetry has shown only sinus rhythm throughout the day today. Allergies Allergy/AdvReac Type Severity Reaction Status Date / Time [facility] Allergy Severe SHORT OF Verified 09/01/21 20:00 BREATH latex AdvReac Mild itching Verified 09/01/21 20:00 Home Medications Medication Instructions Recorded Confirmed Type clobetasol-emollient 0.05 % 1 applic TOPICAL DAILY 05/09/19 09/01/21 History topical foam sertraline 50 mg tablet (Zoloft) 50 mg PO QAM 05/09/19 09/01/21 History Cialis 20 mg tablet (tadalafil) 20 mg PO .COMPLEX PRN #10 tab NS 06/15/20 09/01/21 Rx donepezil 10 mg tablet (Aricept) 10 mg PO DAILY 07/10/20 09/01/21 History valacyclovir 1 gram tablet 1,000 mg PO DAILY PRN #90 tab 11/05/20 09/01/21 Rx celecoxib 200 mg capsule 200 mg PO DAILY #90 cap 01/11/21 09/01/21 Rx rasagiline 1 mg tablet (Azilect) 1 mg PO DAILY 02/22/21 09/01/21 History carbidopa 25 mg-levodopa 100 mg 1.5 tab PO 07,10,13,16,19 tab 03/30/21 09/01/21 History tablet (Sinemet) apixaban 5 mg tablet (Eliquis) 5 mg PO BID #180 tab 04/27/21 09/01/21 Rx amoxicillin 500 mg capsule 2,000 mg PO DIRECTED PRN 09/01/21 09/01/21 History gabapentin 100 mg capsule 100 mg PO BID 09/01/21 09/01/21 History ketoconazole 2 % shampoo 1 applic TOPICAL QAM 09/01/21 09/01/21 History wfjzpooy-cyd-fdzvt acid 0.4 1 tab PO DAILY 09/01/21 09/01/21 History mg-lycopene 300 mcg-lutein 250 mcg tablet (Centrum Silver) Patient History Medical History 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 Anxiety Arrhythmia 2012 A-FLUTTER- CARDIOVERSION- WAS UNSUCESSFUL- THEN ABLATION Rivers's palsy BPH (benign prostatic hyperplasia) Cervical spondylosis Deep vein thrombosis (DVT) of lower extremity Depression Diverticulosis Dyscalculia Folliculitis decalvans GERD (gastroesophageal reflux disease) Erwin filter in place Hearing deficit RIGHT EAR Ischial bursitis Lumbar spondylosis Neurogenic claudication Neuropathy Osteoarthritis Pulmonary embolism X2 Spinal stenosis Spinal stenosis Tubular adenoma of colon Vascular claudication Surgical History History of cardiac radiofrequency ablation (RFA) History of colonoscopy History of nasal surgery History of right cataract surgery History of tonsillectomy History of tooth extraction History of total knee replacement Hx of knee surgery X6 Family History Mother Hearing loss Father Hearing loss Other Cancer Family history of bleeding disorder No family history of adverse response to anesthesia Social History Smoking Status: Never smoker Second Hand Exposure: No; Hx Alcohol Use: No Hx Substance Use: No Preferred Language: Icelandic Communication Ability: Effective Full Service Vending Driver Required: No Beliefs That Will Affect Care: None marital status: Current Living Situation: Spouse Feels Safe at Home: Yes Seatbelt Use: always Assistive Devices: Hearing Aid - Left Physical Exam Physical Exam: Adult white male with obvious tremor who appears to be in no distress. Afebrile. Mildly hypertensive supine BP. Pulse 62 bpm and regular. Skin: no ecchymoses or generalized lesions. HEENT: unremarkable. Neck: Jugular venous pulse at the clavicle at 90 degrees, no carotid bruits. Lungs: clear bilaterally Cardiac: regular rhythm, 2/6 systolic ejection murmur right upper sternal border, intact aortic closure sound, 2/6 apical holosystolic murmur. No diastolic murmur. Abdomen: benign. Extremities: no edema, pulses intact. Neurologic: normal affect, nonfocal. Results & Data ([facility]) Vital Signs (Past 12 Hours) Vital Signs Temp Pulse Pulse Resp BP Pulse Ox 09/02/21 11:22 65 09/02/21 11:00 97.9 F 58 L 16 158/80 H 99 09/02/21 08:00 68 18 146/85 H 98 Laboratory Results Troponin negative. Hemoglobin 13.4 with normal white count and platelet count. Normal electrolytes, BUN 16, creatinine 1.04. Diagnostic Findings Initial ECG showed atrial flutter with variable AV block at 71 bpm. This was new compared with 08/26/2017 ECG. A second ECG yesterday was similar. Telemetry has shown sinus rhythm throughout the day today. Chest x-ray with no acute disease. Echocardiogram with EF 55-60% with mild LVH, mild aortic stenosis/regurgitation, moderate mitral regurgitation with mildly dilated left atrium, mild to moderate tricuspid regurgitation, mild pulmonary hypertension. PG Care Time/CCT Total # of Minutes Spent Total Time Spent with Patient: Total time spent is greater than 50% in coordination of care (as documented) at patient's floor/unit and/or counseling patient: Coding Level of Care Code 36865 Inpt Consult Level 4 Diagnoses Atrial flutter I48.92 Atrial flutter type: unspecified Parkinson disease G20 Hypertension I10 assisted current use of anticoagulant therapy Z79.01 Dyspnea on exertion R06.00 (1) Atrial flutter Atrial flutter type: unspecified Qualified Code(s): I48.92 - Unspecified atrial flutter
[2021-09-03] MEDS: CARBIDOPA/LEVODOPA 25/100MG TAB PO SCH ×4 (06:43→16:11)
[2021-09-03 08:20] LABS: Basophils # (auto) 0.01 K/uL (0-0.2); Basophils % (auto) 0.2 %; Eosinophils % (auto) 1.8 %; Hematocrit (blood only) 38.9 % (42-52); Hemoglobin 12.9 g/dL (14.0-18.0); Lymphocytes % (auto) 21.9 %; Mean Corpuscular Hemoglobin 29.5 pg (25-34); Mean Corpuscular Hgb Conc 33.2 g/dL (32-36); Mean Platelet Volume 9.6 fL (7.4-10.4); Monocytes # (auto) 0.54 K/uL (0.11-0.59); Monocytes % (auto) 9.9 %; Neutrophils # (auto) 3.62 K/uL (1.4-6.5); Neutrophils % (auto) 66.2 %; Platelet Count 203 K/uL (130-400); RDW Coefficient of Variation 14.3 % (11.5-14.5); RDW Standard Deviation 46.8 fL (36.4-46.3); Red Blood Count 4.37 M/uL (4.7-6.1); White Blood Count 5.47 K/uL (4.8-10.8)
[2021-09-03 08:58] LABS: BUN Creatinine Ratio 18.4 (10-20); Calcium 10.2 mg/dl (8.5-10.1); Creatinine Clr Calc Pharmacy 86.3 ml/min; Est GFR (African American) 98.3 ml/min; Est GFR (Non-African American) 84.8 ml/min; Magnesium 2.3 mg/dl (1.8-2.4); Potassium 4.1 mmol/L (3.5-5.1)
[2021-09-03] MEDS ORDERED: AZILECT PO SCH (09:00)
[2021-09-03] MEDS: APIXABAN 5 MG TABLET PO SCH (10:24)
[2021-09-03] MEDS: GABAPENTIN 100 MG CAP PO SCH (10:24)
[2021-09-03] MEDS: SERTRALINE HCL 50 MG TABLET PO SCH (10:24)
[2021-09-03] MEDS: AZILECT PO SCH (10:24)
[2021-09-03] MEDS: DONEPEZIL HCL 10 MG TAB PO SCH (10:24)
--- NOTE | 2021-09-03 13:39 | XCELERA ---
[id number]
--- NOTE | 2021-09-03 13:45 | Hospitalist Progress Note ---
Date of Service September 03, 2021 Assessment & Plan (1) Dyspnea on exertion: Plan: Mr. Florentino is a 76M with a history notable for atrial flutter s/p ablation, h/o atrial fibrillation with RVR, h/o PEs on Eliquis, Parkinson, acoustic neuroma s/p resection complicated with R sensorineural hearing loss and R facial droop, peripheral neuropathy, and LBP who was sent to the ED for further evaluation of dyspnea on exertion with an abnormal EKG. He had transient atrial flutter with controlled ventricular rate at admission. Dyspnea on exertion - ECHO demonstrates EF 55-60%, LV wall motion normal, mild concentric LVH, mild aortic stenosis and regurgitation, moderate mitral regurgitation, mild to moderate tricuspid regurgitation, mild dilation of RA and LV, and RV systolic pressure elevation at 30-40 mmHg - troponins negative x2 - no signs of fluid overload - stress test demonstrated no myocardial ischemia at fatiguing workload - A flutter rate controlled but will get 30 day monitor for any concern of RVR Atrial flutter - recurrence - past h/o ablation for A flutter and h/o A fib - chronically anticoagulated due to history of PEs - currently rate controlled, not on any rate control medication - no arrhythmia noted during stress test - follow up with cardiology to obtain ambulatory 30 day cardiac monitoring Chronic PE - continue Eliquis five twice daily - hemoglobin 13.4, at baseline Parkinson's disease - continue carbidopa levodopa, rasagiline, donepezil per home doses Depression - continue sertraline Polyeuropathy - continue gabapentin DVT ppx: on eliquis FEN/GI: heart healthy Bowel regimen: prn Code Status: Full Code Dispo: Med/Tele (2) Atrial flutter: (3) Parkinson disease: (4) Polyneuropathy: (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 Florentino did well overnight; no dyspnea, diaphoresis, or chest discomfort. Monitoring demonstrated he remained in sinus rhythm. Review of Systems Respiratory: no pleuritic chest pain Cardiovascular: + dyspnea on exertion; no chest pain, no chest pain with activity, no dyspnea at rest, no palpitations, no lightheadedness, no syncope and no edema Physical Exam Constitutional: well developed and well nourished; no acute distress Respiratory: normal respiratory effort, lungs clear to auscultation Neurologic: Motor/Sensory: + tremor (resting tremor bilateral upper extremities) Cranial Nerves: + abnormal facial strength (right facial droop at baseline) Psychiatric: A+Ox3, euthymic affect Results & Data Results & Data ([facility]) Vital Signs (Past 12 Hours) Vital Signs Temp Pulse Pulse Resp BP Pulse Ox 09/03/21 11:28 36.9 C 64 18 154/81 H 96 09/03/21 07:46 36.6 C 58 L 18 188/92 H 96 09/03/21 07:00 52 L 09/03/21 04:08 36.5 C 56 L 18 149/83 H 97 Laboratory Results 09/03/21 09/03/21 09/01/21 Range/Units 07:57 07:57 18:29 WBC 5.47 (4.8-10.8) K/uL RBC 4.37 L (4.7-6.1) M/uL Hgb 12.9 L (14.0-18.0) g/dL Hct 38.9 L (42-52) % MCV 89.0 (80-100) fL MCH 29.5 (25-34) pg MCHC 33.2 (32-36) g/dL RDW Std Deviation 46.8 H (36.4-46.3) fL RDW Coeff of Gerard 14.3 (11.5-14.5) % Plt Count 203 (130-400) K/uL MPV 9.6 (7.4-10.4) fL Immature Gran % (Auto) 0.0 % Neut % (Auto) 66.2 % Lymph % (Auto) 21.9 % [place] % (Auto) 9.9 % Eos % (Auto) 1.8 % Baso % (Auto) 0.2 % Neut # (Auto) 3.62 (1.4-6.5) K/uL Lymph # (Auto) 1.20 (1.2-3.4) K/uL [place] # (Auto) 0.54 (0.11-0.59) K/uL Eos # (Auto) 0.10 (0-0.5) K/uL Baso # (Auto) 0.01 (0-0.2) K/uL Immature Gran # (Auto) 0.00 (0.00-0.02) K/uL Sodium 141 (136-145) mmol/L Potassium 4.1 (3.5-5.1) mmol/L Chloride 110 H (98-107) mmol/L Carbon Dioxide 24 (21-32) mmol/L Anion Gap 8.0 (3-11) BUN 16 (7-18) mg/dl Creatinine 0.86 (0.6-1.4) mg/dl Est Cr Clr Drug Dosing 86.3 ml/min Est GFR ( Amer) 98.3 ml/min Est GFR (Non-Af Amer) 84.8 ml/min BUN/Creatinine Ratio 18.4 (10-20) Glucose 95 (70-99) mg/dl Calcium 10.2 H (8.5-10.1) mg/dl Magnesium 2.3 (1.8-2.4) mg/dl Lyme Disease IgG Ab Negative (Negative) Lyme Disease IgM Ab Negative (Negative) Diagnostic Findings Stress ECHO: 1. Nondiagnostic stress echocardiogram due to failure to achieve target heart rate. Peak heart rate of 104 bpm represents 71% maximum predicted heart rate. No evidence of myocardial ischemia at fatiguing workload. 2. Negative ECG portion of exercise treadmill test. 3. Normal augmentation of left ventricular systolic function post exercise. 4. No chest discomfort or unusual dyspnea. Exercise limited by parkinsonian gait/leg fatigue. 5. No dysrhythmias or ectopy. 6. Poor exercise tolerance. NYHA functional class III. 2.6 met workload. (1) Atrial flutter Atrial flutter type: unspecified Qualified Code(s): I48.92 - Unspecified atrial flutter
--- NOTE | 2021-09-03 14:15 | Cardiology Progress Note ---
Date of Service September 03, 2021 Assessment & Plan (1) Atrial flutter: Plan: Transient atrial flutter with controlled ventricular rate noted at the time of admission, has not recurred. At this time, no clear correlation between this and his symptoms, but it is certainly possible that he develops episodic atrial flutter with suboptimally controlled rate during activity. Given his borderline bradycardia at rest, reluctant to initiate beta-quang empirically, rather would recommend obtaining ambulatory cardiac monitoring over the next month to see if a case can be made that his symptoms are secondary to atrial flutter/tachycardia dysrhythmia. As noted, he is chronically anticoagulated for his pulmonary emboli, so this is not an issue. (2) Dyspnea on exertion: Plan: Etiology uncertain, but as demonstrated today during his stress test his parkinsonian gait seems to be the limiting factor during activity. No evidence of cardiac etiology for exercise intolerance (he had no myocardial ischemia and submaximal heart rate increased suggests cardiac reserve). (3) Hypertension: Plan: Intermittently fairly hypertensive, but Parkinson's medications often cause orthostatic hypotension. Could initiate low-dose amlodipine (2.5 mg) with gradual upward titration will monitoring for orthostasis. 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 Feels well today. No chest pain, dyspnea, or subjective palpitations. Telemetry overnight showed only sinus rhythm in the 60s, no atrial dysrhythmias. He underwent a stress echocardiogram this morning, exercise tolerance was poor due to parkinsonian gait, at the point of fatigue there is no evidence of myocardial ischemia by ECG/echo criteria and he had no chest discomfort. Physical Exam Physical Exam: Adult white male with obvious tremor who appears to be in no distress. Mildly hypertensive supine BP. Pulse 64 bpm and regular. Skin: no ecchymoses or generalized lesions. HEENT: unremarkable. Neck: Jugular venous pulse at the clavicle at 90 degrees, no carotid bruits. Lungs: clear bilaterally Cardiac: regular rhythm, 2/6 systolic ejection murmur right upper sternal border, intact aortic closure sound, 2/6 apical holosystolic murmur. No diastolic murmur. Abdomen: benign. Extremities: no edema, pulses intact. Neurologic: normal affect, nonfocal. Results & Data ([facility]) Vital Signs (Past 12 Hours) Vital Signs Temp Pulse Pulse Resp BP Pulse Ox 09/03/21 11:28 98.4 F 64 18 154/81 H 96 09/03/21 07:46 97.9 F 58 L 18 188/92 H 96 09/03/21 07:00 52 L 09/03/21 04:08 97.7 F 56 L 18 149/83 H 97 Laboratory Results Normal electrolytes, BUN 16, creatinine 0.86. Diagnostic Findings Stress echo was nondiagnostic due to failure to achieve target heart rate. However, fatigue and workload and 71% maximum predicted heart rate, no evidence of myocardial ischemia. PG Care Time/CCT Total # of Minutes Spent Total Time Spent with Patient: Total time spent is greater than 50% in coordination of care (as documented) at patient's floor/unit and/or counseling patient: Coding Level of Care Code 32356 Subseq Hosp Care Lvl 3 Diagnoses Dyspnea on exertion R06.00 Atrial flutter I48.92 Atrial flutter type: unspecified Hypertension I10 Parkinson disease G20 prison current use of anticoagulant therapy Z79.01 (1) Atrial flutter Atrial flutter type: unspecified Qualified Code(s): I48.92 - Unspecified atrial flutter
[2021-09-03 15:21] VITALS: PULSE 84; TEMP 97.7; O2SAT 95
[2021-09-03 15:59] VITALS: BP 158/80
--- NOTE | 2021-09-03 18:40 | Discharge Summary ---
Date of Service September 03, 2021 Admission HPI Per Admitting Provider 76 yo M PMH aflutter s/p ablation, PEs now on chronic anticoagulation with Eliquis, Parkinsons disease, lumbar back pain, HTN, polyneuropathy brought to ER for multiple days of worsening LUGO. States that he's felt a pressure/swelling- like sensation behind his sternum up into his throat when walking or exerting himself. no pain with inspiration. no dizziness or lightheadedness. Was evaluated by PCP in office today and found to have an abnormal EKG, advised to be evaluated in the ER. No peripheral swelling. no recent medication changes. ER course significant for EKG finding atrial fibrillation. Principal Diagnosis Dyspnea on exertion Discharge Exam Constitutional well developed and well nourished; no acute distress Respiratory normal respiratory effort, lungs clear to auscultation Cardiovascular RRR, no murmur, no edema Rate/Rhythm: regular rate and regular rhythm Heart Sounds: normal S1 and normal S2 2+ pulses Gastrointestinal (Abdomen) Inspection/Auscultation: normal bowel sounds Percussion/Palpation: abdomen soft; no guarding Neurologic Motor/Sensory: + tremor (resting tremor bilateral upper extremities) Cranial Nerves: PERRL, normal accommodation, EOM intact bilaterally, tongue midline, able to elevate shoulders bilaterally and no nystagmus; + abnormal facial strength (right facial droop at baseline) Psychiatric A+Ox3, euthymic affect Discharge Data Allergies Allergy/AdvReac Type Severity Reaction Status Date / Time [facility]ron[facility] Allergy Severe SHORT OF Verified 09/01/21 20:00 BREATH latex AdvReac Mild itching Verified 09/01/21 20:00 Consultations 09/01/21 20:34 ED Decision to Admit Stat 09/01/21 20:51 Consult Cardiology Routine Hospital Course (1) Dyspnea on exertion: Mr. Florentino is a 76M with a PMHx atrial flutter s/p ablation, atrial fibrillation w/ RVR, multiple PEs on Eliquis, Parkinsons, acoustic neuroma s/p resection (R sensorineural hearing loss and R facial droop), peripheral neuropathy who presented to the ED for dyspnea on exertion with an abnormal EKG. He had transient atrial flutter with controlled ventricular rate at admission. Dyspnea on exertion - Presented with weeks of dyspnea on exertion - Likely due to progressive Parkinsons disease and deconditioning - Echo (09/02): EF 55-60%, LV wall motion normal, mild concentric LVH, mild aortic stenosis, moderate MR, mild-mod TR, RV systolic pressure elevation at 30- 40 mmHg - trops neg - no signs of fluid overload - stress echo (09/03): no myocardial ischemia at fatiguing workload, peak HR 104 - cardio consult: ambulatory cardiac event monitoring (30 days) to see if symptoms are sec to atrial flutter/tachycardia dysrhythmia. - f/u cardiology Atrial flutter - recurrence - h/o ablation 2013 - chronically anticoagulated on Eliquis for h/o multiple PEs - currently rate controlled, no medication - no arrhythmia noted during stress test - cardio consult: ambulatory cardiac event monitoring (30 days) to see if symptoms are sec to atrial flutter/tachycardia dysrhythmia. Chronic Multiple PE - INR 1.0 (09/01) - cont. Eliquis Parkinson's disease - continue carbidopa levodopa, rasagiline, donepezil - cont. 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: (6) Depression: Total Time Total Time Spent Total Time Spent (In Minutes): 30 Discharge Plan Discharge Items Patient Disposition: Home - Self-Care Reason For Visit: AFIB Discharge Diagnosis: Atrial Flutter Activity: Resume your previous activity Non-emergency contact: Primary Care Provider Call non-emergency contact if: you have any medication questions, your symptoms worsen and your pain is not controlled Follow-up/Referrals: Magdiel Quick MD [Physician] - Pro,Brain Saunders MD [Primary Care Provider] - 09/17/21 11:15 am (Your appointment will be with CHRISTEL Ross.) Diet: Heart Healthy Addtl Attending Provider Instructions: You were admitted to the hospital for atrial fibrillation with a controlled heart rate. Due to your history of chronic pulmonary embolisms, you are also on chronic anticoagulation with Eliquis, which is also the mainstay of treatment for anticoagulation for atrial fibrillation. In the hospital, you underwent a echocardiogram stress test. During this test, when you began to show symptoms of dyspnea and fatigue, there was no abnormalities in your EKG or echocardiogram making the heart an unlikely cause for your symptoms. It is more likely your symptoms stem from progressive Parkinson's. Going forward you should schedule an appointment with your PCP and storage facility housekeeper for follow up. Either of them can get you set up with an cardiac event monitor which should be used for 30 days when you experience your current symptoms. A discharge summary will be sent to your primary care physician to ensure continuity of care. Please bring this discharge summary with you to your next office appointment so that your provider can review it at that time. Follow-up appointments: Make a follow-up appointment with your PCP and a storage facility housekeeper within the next week. It is very important that you follow up with them shortly after discharge from the hospital. Please call their office if you do not hear from them first. Keep all your follow-up appointments as already scheduled. If you cannot make an appointment, notify your provider. Medications: Your medication list has been reviewed and reconciled upon discharge to ensure accuracy and continuity of care. An updated list of all your medications is included with your hospital discharge paperwork. Please review this list closely,and make note of any changes. No changes today. Take your medications as instructed; do not skip a dose of your medicines. Make sure all of your doctors know every medicine you are taking (including hsre-jyz-iknvjko medicines, vitamins,and supplements). Call your primary care provider before taking any new medicines (including rtlt-ong-bmajwbz medicines, vitamins, and supplements),because some of these may interact with your current medications, or may make your symptoms worse. Tell your primary care provider if you cannot afford your medications. CONTACT YOUR PRIMARY CARE PROVIDER if you experience any of the following: Difficulty following your treatment plan, or difficulty taking medications. CALL 911 OR GO TO THE EMERGENCY DEPARTMENT if you experience any of the following: Sudden, severe abdominal pain or nausea/vomiting Severe chest pain, or chest pain that radiates (moves)to your jaw or arm Sudden, severe shortness of breath or difficulty breathing Thank you for allowing us to participate in your care. Pending Studies at Discharge: No Stand-Alone Forms: [employer], Smoking Cessation Medications and DC Order Prescriptions: Continued valacyclovir 1 gram tablet 1,000 mg PO DAILY PRN (Reason: outbreak) Qty: 90 RF: 0 celecoxib 200 mg capsule 200 mg PO DAILY Qty: 90 RF: 1 Eliquis 5 mg tablet 5 mg PO BID Qty: 180 RF: 3 tadalafil [Cialis] 20 mg tablet 20 mg PO .COMPLEX PRN (Reason: sexual activity) Qty: 10 RF: 3 donepezil [Aricept] 10 mg tablet 10 mg PO DAILY RF: 0 rasagiline [Azilect] 1 mg tablet 1 mg PO DAILY RF: 0 sertraline [Zoloft] 50 mg Tablet 50 mg PO QAM RF: 0 clobetasol-emollient 0.05 % Foam 1 applic TOPICAL DAILY RF: 0 carbidopa-levodopa [Sinemet] 25-100 mg tablet 1.5 tab PO ,,,16, RF: 0 ketoconazole 2 % shampoo 1 applic TOPICAL QAM RF: 0 amoxicillin 500 mg capsule 2,000 mg PO DIRECTED PRN (Reason: 1 HR PRIOR TO DENTAL PROCEDURES) RF: 0 gabapentin 100 mg capsule 100 mg PO BID RF: 0 Centrum Silver 0.4-300-250 mg-mcg-mcg Tablet 1 tab PO DAILY RF: 0 Discharge Orders: Discharge Order (Routine); Ordered 09/03/21 Ordered By: Ever Norton Admission Data Admit Date/Time: 09/01/21 20:44 Attending Provider: Pily Song Admit Provider: Rneita Norton Primary Care Provider: Brain Kim Other Providers: Russ Elmore ; Catalina Graham Other Interventions: Discharge Summary Assessment (RN) Last Done: 09/03/21 15:58 Supervising Physician Co-Signing Physician Notes Resident Physician Supervision Note: I independently interviewed and examined the patient and verified the hairston history and physical, reviewed labs and image studies and agree with resident Dr. Norton findings and care plan. Resident Activity Tracking Resident Involvement: Resident Care Provided Care Provided: Adult Hospital Medicine
== END 2021-09-03 17:22 | disposition home or self-care (01) ==
LOC: ED 18:09 → EDINP 18:09 → SUATTDRO 20:44 → 2W 09-02 04:28